=== PATIENT | male | born 1985 | race Caucasian/White ===

== ENCOUNTER 2019-07-18 15:37 | Emergency (ER) | payer OTHER ==
[2019-07-18] MEDS ORDERED: MORPHINE 4 MG/ML SYR ONE (16:06)
[2019-07-18] MEDS ORDERED: NA CHLORIDE 0.9% 500 ML ONE (16:06)
[2019-07-18 16:24] LABS: Absolute Lymphocytes (CBC) 4.9 K/uL (0.7-4.9); Basophils % 0.8 % (0-1.3); Hematocrit 40.6 % (39.6-49.0); Lymphocytes % 36.8 % (15.3-44.8); MPV 7.7 fL (7.6-11.3); RBC Red Blood Cell Count 4.73 M/uL (4.33-5.43)
[2019-07-18 16:37] LABS: ALT/SGPT 107 U/L (12-78); AST/SGOT 30 U/L (15-37); Albumin 3.8 g/dL (3.4-5.0); Alkaline Phosphatase 68 U/L (45-117); BUN Blood Urea Nitrogen 12 mg/dL (7-18); Bicarbonate 26 mmol/L (21-32); Bilirubin Direct < 0.1 mg/dL (0-0.2); Bilirubin Total 0.2 mg/dL (0.2-1.0); Glucose Level 93 mg/dL (74-106); Lipase 162 U/L (73-393); Potassium 3.9 mmol/L (3.5-5.1); Protein, Total 8.2 g/dL (6.4-8.2); Sodium Level 139 mmol/L (136-145)
--- NOTE | 2019-07-18 17:26 | RAD REPORT ---
EXAM DESCRIPTION: CT - Abdomen Pelvis W Contrast - 07/18/2019 5:08 pm CLINICAL HISTORY: Abdominal pain COMPARISON: none. TECHNIQUE: Computed axial tomography of the abdomen pelvis was obtained. 100 cc Isovue-300 was admin istered intravenously. Oral contrast was not requested which limits evaluation of bowel. All CT scans are performed using dose optimization technique as appropriate and may include automated exposure control or mA/KV adjustment according to patient size. FINDINGS: Fatty liver. The liver is mildly enlarged. The Spleen, pancreas, adrenal and kidneys appear unremarkable. The wall of the distal descending colon is moderately thickened. Mild to moderate stranding is presen t within the adjacent fat. A couple of diverticula stem from the sigmoid colon. There is a trace amou nt of free fluid. No free air. Normal appendix Small ventral and small supraumbilical hernia IMPRESSION: Wall of the distal descending colon is moderately thickened with mild to moderate strand ing within the adjacent fat. A diverticula is not visualized in this location. There are a couple of diverticula within the sigmoid colon. These findings presumably indicate a colitis with diverticulit is being somewhat less likely. .
--- NOTE | 2019-07-18 17:35 | ER ---
Nurse's Notes [facility] Name: Leonard Rea Age: 34 yrs Sex: Male : 1985 Arrival Date: 07/18/2019 Time: 15:39 Bed 30 Private MD: Jair Duron Diagnosis: Left sided colitis Presentation: 07/18 15:45 Presenting complaint: Patient states: sharp, LLQ pain that began 1 week ago. Denies ss fever, N/V/D. reports, we thought maybe it was a UTI so we started him on antibiotics. ". Transition of care: patient was not received from another setting of care. Onset of symptoms was June 2019. Risk Assessment: Do you want to hurt yourself or someone else? Patient reports no desire to harm self or others. Initial Sepsis Screen: Does the patient meet any 2 criteria? No. Patient's initial sepsis screen is negative. Does the patient have a suspected source of infection? No. Patient's initial sepsis screen is negative. Care prior to arrival: None. 15:45 Method Of Arrival: Ambulatory ss 15:45 Acuity: CHATA 3 ss Historical: - Allergies: 15:48 No Known Allergies; ss - Home Meds: 15:48 Albuterol Inhl [Active]; ss - PMHx: 15:48 Asthma; Bipolar disorder; Depression; ss - PSHx: 15:48 None; ss - Immunization history:: Adult Immunizations unknown. - Social history:: Smoking status: Patient/guardian denies using tobacco. - Ebola Screening: : Patient denies exposure to infectious person Patient denies travel to an Ebola-affected area in the 21 days before illness onset. Screenin:00 Abuse screen: Denies threats or abuse. Denies injuries from another. Nutritional ca1 screening: No deficits noted. Tuberculosis screening: No symptoms or risk factors identified. Fall Risk IV access (20 points). Assessment: 16:00 General: Appears in no apparent distress. comfortable, Behavior is calm, cooperative, ca1 appropriate for age. Pain: Complains of pain in left lower quadrant Pain does not radiate. Pain currently is 8 out of 10 on a pain scale. Quality of pain is described as sharp, Pain began a week ago but has gotten worse yesterday Is intermittent, Aggravated by repositioning. Neuro: Level of Consciousness is awake, alert, obeys commands, Oriented to person, place, time, situation, Appropriate for age. Cardiovascular: Heart tones S1 S2 present Capillary refill < 3 seconds Patient's skin is warm and dry. Respiratory: Airway is patent Respiratory effort is even, unlabored, Respiratory pattern is regular, symmetrical, Breath sounds are clear bilaterally. GI: Abdomen is round non-distended, Bowel sounds present X 4 quads. Abd is soft X 4 quads Abdomen is tender to palpation in left lower quadrant. : No deficits noted. No signs and/or symptoms were reported regarding the genitourinary system. EENT: No deficits noted. No signs and/or symptoms were reported regarding the EENT system. Derm: Skin is intact, is healthy with good turgor, Skin is pink, warm \\T\\ dry. Musculoskeletal: Circulation, motion, and sensation intact. Capillary refill < 3 seconds, Range of motion: intact in all extremities. 17:23 Reassessment: Patient appears in no apparent distress at this time. Patient and/or ca1 family updated on plan of care and expected duration. Pain level reassessed. Patient is alert, oriented x 3, equal unlabored respirations, skin warm/dry/pink. Vital Signs: 15:48 BP 130 / 82; Pulse 71; Resp 15; Temp 97.6(TE); Pulse Ox 98% on R/A; Weight 117.93 kg; ss Height 6 ft. 3 in. (190.50 cm); Pain 8/10; 16:35 BP 118 / 84; Pulse 75; Resp 17 S; Pulse Ox 97% on R/A; ca1 17:25 BP 120 / 86; Pulse 76; Resp 17 S; Pulse Ox 99% on R/A; ca1 15:48 Body Mass Index 32.50 (117.93 kg, 190.50 cm) ED Course: 15:39 Patient arrived in ED. rg4 15:39 Jair Duron MD is Private Physician. rg4 15:42 Mike Pat FNP-C is [facility]. la1 15:42 Fernie Crawford MD is Attending Physician. la1 15:47 Triage completed. ss 15:48 Arm band placed on right wrist. ss 16:00 No provider procedures requiring assistance completed. ca1 16:01 Colette Mike, YFN is Primary Nurse. ca1 16:08 Initial lab(s) drawn, by me, sent to lab. Inserted saline lock: 20 gauge in right jp3 antecubital area, using aseptic technique. Blood collected. Patient maintains SpO2 saturation greater than 95% on room air. 16:09 Safety checks: Family/friend present: yes. Bed in low position. Call light in reach. jp3 Side rails up X 1. Verbal reassurance given. Pulse ox on. NIBP on. 17:12 CT Abd/Pelvis - IV Contrast Only In Process Unspecified. EDMS 17:45 IV discontinued, intact, bleeding controlled, No redness/swelling at site. Pressure ca1 dressing applied. Administered Medications: 16:05 Drug: NS 0.9% 500 ml Route: IV; Rate: bolus; Site: right antecubital; ca1 17:00 Follow up: Response: No adverse reaction; IV Status: Completed infusion; IV Intake: ca1 500ml 16:07 Drug: morphine 4 mg {Note: RASS - 0.} Route: IVP; Site: right antecubital; ca1 17:37 Follow up: Response: No adverse reaction; Pain is decreased; RASS: Alert and Calm (0) ca1 17:44 Drug: Cipro 500 mg Route: PO; ca1 17:44 Follow up: Response: Medication administered at discharge. ca1 17:44 Drug: Flagyl 500 mg Route: PO; ca1 17:44 Follow up: Response: Medication administered at discharge. ca1 Intake: 17:00 IV: 500ml; Total: 500ml. ca1 Outcome: 17:34 Discharge ordered by . la1 17:45 Discharged to home ambulatory, with family. ca1 17:45 Condition: stable 17:45 Discharge instructions given to patient, Instructed on discharge instructions, follow up and referral plans. no drinking with medication, medication usage, Demonstrated understanding of instructions, follow-up care, medications, Prescriptions given X 3. 17:47 Patient left the ED. ca1 Signatures: Dispatcher [employer] EDMS Heidi Riddle, YFN RN Mike You, DESIGN MANAGER-C DESIGN MANAGER-Yeimy Cunningham Jacob jp3 Colette Mike RN RN ca1
--- NOTE | 2019-07-18 17:36 | EDPHYS ---
Physician Documentation [facility] Name: Leonard Rea Age: 34 yrs Sex: Male : 1985 Arrival Date: 07/18/2019 Time: 15:39 Bed 30 Private MD: Jair Duron ED Physician Fernie Crawford HPI: 07/18 16:17 This 34 yrs old Male presents to ER via Ambulatory with complaints of la1 Abdominal Pain. 16:17 The patient presents with abdominal pain that is diffuse. Onset: The symptoms/episode la1 began/occurred 1 week(s) ago. The symptoms do not radiate. Associated signs and symptoms: Pertinent negatives: chest pain, constipation, diarrhea, dysuria, fever, headache, hematuria. The symptoms are described as sharp. Modifying factors: The symptoms are alleviated by nothing, the symptoms are aggravated by alcohol. Severity of pain: At its worst the pain was moderate. Historical: - Allergies: 15:48 No Known Allergies; ss - Home Meds: 15:48 Albuterol Inhl [Active]; ss - PMHx: 15:48 Asthma; Bipolar disorder; Depression; ss - PSHx: 15:48 None; ss - Immunization history:: Adult Immunizations unknown. - Social history:: Smoking status: Patient/guardian denies using tobacco. - Ebola Screening: : Patient denies exposure to infectious person Patient denies travel to an Ebola-affected area in the 21 days before illness onset. ROS: 16:18 Constitutional: Negative for fever, chills, and weight loss, Eyes: Negative for injury, la1 pain, redness, and discharge, ENT: Negative for injury, pain, and discharge, Neck: Negative for injury, pain, and swelling, Cardiovascular: Negative for chest pain, palpitations, and edema, Respiratory: Negative for shortness of breath, cough, wheezing, and pleuritic chest pain, Back: Negative for injury and pain, : Negative for injury, bleeding, discharge, and swelling, MS/Extremity: Negative for injury and deformity, Skin: Negative for injury, rash, and discoloration, Neuro: Negative for headache, weakness, numbness, tingling, and seizure. 16:18 Abdomen/GI: Positive for abdominal pain. Exam: 16:19 Constitutional: This is a well developed, well nourished patient who is awake, alert, la1 and in no acute distress. Head/Face: Normocephalic, atraumatic. Eyes: Pupils equal round and reactive to light, extra-ocular motions intact. Periorbital areas with no swelling, redness, or edema. ENT: Mucous membranes moist. Neck: Trachea midline, no thyromegaly or masses palpated, and no cervical lymphadenopathy. Supple, full range of motion without nuchal rigidity, or vertebral point tenderness. No Meningismus. Chest/axilla: Normal chest wall appearance and motion. Nontender with no deformity. No lesions are appreciated. Cardiovascular: Regular rate and rhythm with a normal S1 and S2. No gallops, murmurs, or rubs. Normal PMI, no JVD. No pulse deficits. Respiratory: Lungs have equal breath sounds bilaterally, clear to auscultation No rales, rhonchi or wheezes noted. No increased work of breathing, no retractions or nasal flaring. 16:19 Abdomen/GI: Inspection: abdomen appears normal, obese Bowel sounds: normal, in all quadrants, Palpation: soft, in all quadrants, moderate abdominal tenderness, in the left lower quadrant, Indicators: McBurney's point is not tender, Akers's sign is negative, Rovsing's sign is negative, Obturator sign is negative, Psoas sign is negative. Vital Signs: 15:48 BP 130 / 82; Pulse 71; Resp 15; Temp 97.6(TE); Pulse Ox 98% on R/A; Weight 117.93 kg; ss Height 6 ft. 3 in. (190.50 cm); Pain 8/10; 16:35 BP 118 / 84; Pulse 75; Resp 17 S; Pulse Ox 97% on R/A; ca1 17:25 BP 120 / 86; Pulse 76; Resp 17 S; Pulse Ox 99% on R/A; ca1 15:48 Body Mass Index 32.50 (117.93 kg, 190.50 cm) ss MDM: 15:49 Patient medically screened. la1 17:33 Data reviewed: vital signs, nurses notes, and as a result, I will discharge patient. la1 Data interpreted: Pulse oximetry: on room air is 100 %. Interpretation: normal. Counseling: I had a detailed discussion with the patient and/or guardian regarding: the historical points, exam findings, and any diagnostic results supporting the discharge/admit diagnosis, the presence of at least one elevated blood pressure reading (>120/80) during this emergency department visit, radiology results, to return to the emergency department if symptoms worsen or persist or if there are any questions or concerns that arise at home. Special discussion: Based on the patient's Hx, exam, and Dx evaluation, there is no indication for emergent surgery or inpatient Tx. It is understood by the patient/guardian that if the Sx's persist or worsen they need to return immediately for re-evaluation. ED course: Pt tolerating PO, in no significant distress at this time. Will place on oral abx and have FU. strict return precautions given. 07/18 15:50 Order name: Basic Metabolic Panel; Complete Time: 17:32 07/18 15:50 Order name: CBC with Diff 07/18 15:50 Order name: Creatinine for Radiology; Complete Time: 17:32 07/18 15:50 Order name: Hepatic Function; Complete Time: 17:32 07/18 15:50 Order name: Lipase; Complete Time: 17:32 07/18 16:14 Order name: CT Abd/Pelvis - IV Contrast Only; Complete Time: 17:32 07/18 15:50 Order name: IV Saline Lock; Complete Time: 16:09 07/18 15:50 Order name: Labs collected and sent; Complete Time: 16: Administered Medications: 16:05 Drug: NS 0.9% 500 ml Route: IV; Rate: bolus; Site: right antecubital; ca1 17:00 Follow up: Response: No adverse reaction; IV Status: Completed infusion; IV Intake: ca1 500ml 16:07 Drug: morphine 4 mg {Note: RASS - 0.} Route: IVP; Site: right antecubital; ca1 17:37 Follow up: Response: No adverse reaction; Pain is decreased; RASS: Alert and Calm (0) ca1 17:44 Drug: Cipro 500 mg Route: PO; ca1 17:44 Follow up: Response: Medication administered at discharge. ca1 17:44 Drug: Flagyl 500 mg Route: PO; ca1 17:44 Follow up: Response: Medication administered at discharge. ca1 Disposition: 07/18/19 17:34 Discharged to Home. Impression: Left sided colitis. - Condition is Stable. - Discharge Instructions: Diverticulitis, Colitis. - Prescriptions for Bentyl 20 mg Oral Tablet - take 1 tablet by ORAL route every 6 hours As needed; 20 tablet. Cipro 500 mg Oral Tablet - take 1 tablet by ORAL route every 12 hours for 7 days; 14 tablet. Flagyl 500 mg Oral Tablet - take 1 tablet by ORAL route every 8 hours for 7 days; 21 tablet. - Medication Reconciliation Form, Thank You Letter, Antibiotic Education, Work release form form. - Follow up: Private Physician; When: 2 - 3 days; Reason: Recheck today's complaints, Re-evaluation by your physician. Follow up: Emergency Department; When: As needed; Reason: Worsening of condition. - Problem is new. - Symptoms have improved. Addendum: 07/21/2019 06:40 Co-signature as Attending Physician, Fernie Crawford MD I agree with the assessment and k dr plan of care. Signatures: Dispatcher [employer] EDKY Fernie Crawford MD MD kdr Heidi Riddle RN RN Mike Pat, SEWING LINE BALER-C SEWING LINE BALER-Cla1 Colette Mike RN RN ca1 Corrections: (The following items were deleted from the chart) 07/18 15:55 15:50 Urine Dipstick-Ancillary ordered. la1 la1 17:47 17:34 07/18/2019 17:34 Discharged to Home. Impression: Left sided colitis. Condition is ca1 Stable. Forms are Medication Reconciliation Form, Thank You Letter, Antibiotic Education, Prescription Opioid Use. Follow up: Private Physician; When: 2 - 3 days; Reason: Recheck today's complaints, Re-evaluation by your physician. Follow up: Emergency Department; When: As needed; Reason: Worsening of condition. Problem is new. Symptoms have improved. la1
[2019-07-18] MEDS ORDERED: metroNIDAZOLE 500 MG TABLET ONE (17:42)
[2019-07-18] MEDS ORDERED: CIPROFLOXACIN HCL 500 MG TAB ONE (17:42)
[2019-07-18 18:37] VITALS: TEMP 97.6
[2019-07-18 18:40] VITALS: BP 120/86; O2SAT 99
== END 2019-07-18 17:47 | disposition home or self-care (01) ==
LOC: ER 15:37
DX: K51.50 Left sided colitis without complications (principal); J45.909 Unspecified asthma, uncomplicated
CPT/HCPCS: 96361; 85025; 80048; 36415; 80076; 83690; 74177; 96374; 99284; Q9967; J7040

== ENCOUNTER 2020-12-28 20:06 | Emergency (ER) | payer OTHER, SELFPAY ==
--- OUTSIDE RECORDS SUMMARY | 2020-12-28 20:10 | XMS REPORT | Continuity of Care Document ---
:1985 Author Organization [facility] t Address [address] [place] [address] Care Team Providers Name Role Phone 1, [facility] Sleep Lab Bed Attending Clinician Unavailable Doctor Unassigned, Name Attending Clinician Unavailable Only, Test Attending Clinician Unavailable Problems Condition Condition Condition Status Onset Resolution Last Treating Co mments Source Name Details Category Date Date Treatment Clinician Date Encounter Encounter Diagnosis Active [facility] fertility Sundeep reji planning planning l [facility] Allergies, Adverse Reactions, Alerts This patient has no known allergies or adverse reactions. Medications Ordered Filled Start Stop Current Ordering Indication Dosage Frequency Signature Comments Components Source Medication Medication Date Date Medication? Clinician (SIG) Name Name Escitalopra Escitalopra Yes Codie [address] [facility] Oxalate [facility]alate [facility] Noe Basic Noe Basic Yes Codie not [facility] Nexium Nexium Yes Codie [facility] capsule [facility] Divalproex Divalproex Yes Codie [address] [facility] [address] Sodium Sodium Citrus [facility] Calm Plus Calm Plus Yes Codie as [facility] Fish Oil Fish Oil Yes Codie [address] [facility] Xyzal Xyzal Yes Codie not [facility] Procedures This patient has no known procedures. Encounters Start End Encounter Admission Attending Care Care Encounter Source Date/Time Date/Time Type Type Clinicians Facility Department ID 2020-03-02 2020-03-02 Campus Supervisor 1, [facility] [id number] 13:30:04 16:00:04 Visit Sleep Lab [place] [id number] Bed [place] [id number] [place] [id number] 2020-03-02 2020-03-02 Orders Doctor JHONATAN [id number] 00:00:00 00:00:00 Only Unassigned, L[facility]SS[facility] [id number] [facility] [id number] 2020-02-27 2020-02-27 Laboratory Only, [facility] [id number] 10:53:49 11:08:49 Only Test [place] [id number] [place] [id number] [place] [id number] 2020-02-12 2020-02-12 Campus Supervisor 1, [facility] [id number] 14:19:31 16:49:31 Visit Sleep Lab [place] [id number] Bed [place] [id number] [place] [id number] 2020-02-10 2020-02-10 Laboratory Only, [facility] [id number] 11:27:44 11:42:44 Only Test [place] [id number] [place] [id number] [place] [id number] 2020-02-10 2020-02-10 Orders Doctor JHONATAN [id number] 00:00:00 00:00:00 Only Unassigned, LYSSA [id number] [facility] [id number] 2019-08-12 2019-08-12 [facility] [id number] 16:00:00 16:00:00 t Specialty/U Julianne kes - Specialty rology [facility] a /Urology Clinic l Clinic Outpati ent Clinics Results This patient has no known results.
[2020-12-28] MEDS ORDERED: MAGNES/ALUMIN/SIMET 30ML UCUP ONE (20:57)
[2020-12-28] MEDS ORDERED: LIDOCAINE VISCOUS 2% SOLN 15 ML UDC ONE (20:57)
[2020-12-28 21:10] LABS: Absolute Lymphocytes (CBC) 4.1 K/uL (0.7-4.9); Basophils % 0.8 % (0-1.3); Hematocrit 41.2 % (39.6-49.0); Lymphocytes % 33.1 % (15.3-44.8); MPV 9.8 fL (7.6-11.3); RBC Red Blood Cell Count 5.09 M/uL (4.33-5.43)
[2020-12-28 21:27] LABS: ALT/SGPT 41 U/L (12-78); AST/SGOT 14 U/L (15-37); Albumin 4.2 g/dL (3.4-5.0); Alkaline Phosphatase 85 U/L (45-117); BUN Blood Urea Nitrogen 11 mg/dL (7-18); Bicarbonate 25 mmol/L (21-32); Bilirubin Direct < 0.1 mg/dL (0-0.2); Bilirubin Total 0.5 mg/dL (0.2-1.0); Glucose Level 91 mg/dL (74-106); Lipase 160 U/L (73-393); Potassium 3.6 mmol/L (3.5-5.1); Protein, Total 8.5 g/dL (6.4-8.2); Sodium Level 142 mmol/L (136-145)
--- NOTE | 2020-12-28 23:01 | EDPHYS ---
Physician Documentation [facility] Name: Leonard Rea Age: 35 yrs Sex: Male : 1985 Arrival Date: 12/28/2020 Time: 20:10 Bed 15 Private MD: ED Physician Tony Redmond HPI: 12/28 20:52 This 35 yrs old Male presents to ER via Ambulatory with complaints of rn Abdominal Pain. 20:52 The patient presents with abdominal pain right side/flank. Onset: The symptoms/episode rn began/occurred 2 year(s) ago. The symptoms do not radiate. Associated signs and symptoms: Pertinent positives: diarrhea, heartburn, Pertinent negatives: chest pain, constipation, fever. The symptoms are described as achy, crampy, sharp. Modifying factors: The symptoms are alleviated by nothing, the symptoms are aggravated by food, movement, touching the area. Severity of pain: At its worst the pain was moderate in the emergency department the pain has improved. The patient has experienced similar episodes in the past. The patient has not recently seen a physician. Reports 2 years of intermittent right sided abd pain assoc with intermittent diarrhea, heartburn. Last for a week or so at a time, no hx of abd diagnoses, no trauma. Going through a lot of stress lately. Nothing really changed recently, not any worse, just decided to come in because has been happening for so long.. Historical: - Allergies: 20:18 No Known Allergies; vg1 - Home Meds: 20:18 Depakote Oral [Active]; Lexapro Oral [Active]; [place] Carbonate Oral [Active]; vg1 - PMHx: 20:18 Asthma; Bipolar disorder; Depression; Anxiety; vg1 - Immunization history:: Adult Immunizations up to date. - Social history:: Smoking status: Patient denies any tobacco usage or history of. Patient uses marijuana. - Family history:: not pertinent. - Hospitalizations: : No recent hospitalization is reported. ROS: 20:52 Constitutional: Negative for fever, chills, and weight loss, Eyes: Negative for injury, rn pain, redness, and discharge, Neck: Negative for injury, pain, and swelling, Cardiovascular: Negative for chest pain, palpitations, and edema, Respiratory: Negative for shortness of breath, cough, wheezing, and pleuritic chest pain, Abdomen/GI: Negative for nausea, vomiting and constipation, Back: Negative for injury and pain, : Negative for injury, bleeding, discharge, and swelling, MS/Extremity: Negative for injury and deformity, Skin: Negative for injury, rash, and discoloration, Neuro: Negative for headache, weakness, numbness, tingling, and seizure. Exam: 20:52 Constitutional: This is a well developed, well nourished patient who is awake, alert, rn and in no acute distress. Head/Face: Normocephalic, atraumatic. Eyes: Periorbital areas with no swelling, redness, or edema. Cardiovascular: Regular rate and rhythm. No pulse deficits. Respiratory: No increased work of breathing, no retractions or nasal flaring. Abdomen/GI: soft, mild right sided abd tenderness, no rebound, no masses, neg elam Skin: Warm, dry MS/ Extremity: Pulses equal, no cyanosis. Neuro: Awake and alert, GCS 15 Vital Signs: 20:11 BP 135 / 102; Pulse 62; Resp 16; Temp 97.8; Pulse Ox 99% ; Weight 113.4 kg; Height 6 vg1 ft. 3 in. (190.50 cm); Pain 9/10; 23:25 BP 122 / 78; Pulse 61; Resp 16; Pulse Ox 99% on R/A; jm8 20:11 Body Mass Index 31.25 (113.40 kg, 190.50 cm) vg1 MDM: 20:21 Patient medically screened. rn 22:59 Differential diagnosis: appendicitis, diverticulitis, gastritis, gastroesophageal rn reflux disease, Ureterolithiasis. Data reviewed: vital signs, nurses notes, lab test result(s), radiologic studies, CT scan, and as a result, I will discharge patient. Counseling: I had a detailed discussion with the patient and/or guardian regarding: the historical points, exam findings, and any diagnostic results supporting the discharge/admit diagnosis, lab results, radiology results, the need for outpatient follow up, to return to the emergency department if symptoms worsen or persist or if there are any questions or concerns that arise at home. Response to treatment: the patient's symptoms have mildly improved after treatment, and as a result, I will discharge patient. Special discussion: Based on the patient's Hx, exam, and Dx evaluation, there is no indication for emergent surgery or inpatient Tx. It is understood by the patient/guardian that if the Sx's persist or worsen they need to return immediately for re-evaluation. I discussed with the patient/guardian in detail that at this point there is no indication for admission to the hospital. It is understood, however, that if the symptoms persist or worsen the patient needs to return immediately for re-evaluation. Based on the history and exam findings, there is no indication for further emergent testing or inpatient evaluation. I discussed with the patient/guardian the need to see the fast food shift supervisor for further evaluation of the symptoms. 12/28 20:34 Order name: Basic Metabolic Panel; Complete Time: 21:28 rn 12/28 20:34 Order name: CBC with Diff; Complete Time: 21: rn 12/28 20:34 Order name: Hepatic Function; Complete Time: :28 rn 12/28 20:34 Order name: Lipase; Complete Time: 21:28 12/28 20:34 Order name: CT Abd/Pelvis - IV Contrast Only 12/28 20:34 Order name: IV Saline Lock; Complete Time: 20:48 rn 12/28 20:34 Order name: Labs collected and sent; Complete Time: 20:48 rn Administered Medications: 20:48 Drug: GI Cocktail without - (Maalox Suspension 30 ml, Lidocaine Liquid 2 % 15 jm8 ml) Route: PO; 23:22 Follow up: Response: No adverse reaction [facility] 23:21 Drug: Cipro (ciprofloxacin) 500 mg Route: PO; [facility] 23:22 Follow up: Response: No adverse reaction; Medication administered at discharge. [facility] 23:22 Drug: Flagyl (metroNIDAZOLE) 500 mg Route: PO; 8 23:22 Follow up: Response: No adverse reaction [facility] Disposition: 12/28/20 23:00 Discharged to Home. Impression: Diverticulitis of large intestine without perforation or abscess without bleeding, Fatty (change of) liver, not elsewhere classified. - Condition is Stable. - Discharge Instructions: Diverticulitis, Nonalcoholic Fatty Liver Disease Diet. - Prescriptions for Flagyl 500 mg Oral Tablet - take 1 tablet by ORAL route every 8 hours for 10 days; 30 tablet. Cipro 500 mg Oral Tablet - take 1 tablet by ORAL route every 12 hours for 10 days; 20 tablet. - Medication Reconciliation Form, Thank You Letter, Antibiotic Education, Prescription Opioid Use form. - Follow up: Jarrell Crawford MD; When: As needed; Reason: Recheck today's complaints, Re-evaluation by your physician. - Problem is an ongoing problem. - Symptoms have improved. Signatures: Dispatcher [employer] EDTony Peña MD MD rn Lizandro, Sandhya, RN RN vg1 Beny Christensen, RN RN jm8 Corrections: (The following items were deleted from the chart) 20:55 20:52 Reports 2 years of intermittent right sided abd pain assoc with intermittent rn diarrhea, heartburn. Last for a week or so at a time, no hx of abd diagnoses, no trauma. Going through a lot of stress lately. . rn 23:24 23:00 12/28/2020 23:00 Discharged to Home. Impression: Diverticulitis of large jm8 intestine without perforation or abscess without bleeding; Fatty (change of) liver, not elsewhere classified. Condition is Stable. Forms are Medication Reconciliation Form, Thank You Letter, Antibiotic Education, Prescription Opioid Use. Follow up: Jarrell Crawford; When: As needed; Reason: Recheck today's complaints, Re-evaluation by your physician. Problem is an ongoing problem. Symptoms have improved. rn
--- NOTE | 2020-12-28 23:01 | ER ---
Nurse's Notes [facility] Name: Leonard Rea Age: 35 yrs Sex: Male : 1985 Arrival Date: 12/28/2020 Time: 20:10 Bed 15 Private MD: Diagnosis: Diverticulitis of large intestine without perforation or abscess without bleeding;Fatty (change of) liver, not elsewhere classified Presentation: 12/28 20:11 Chief complaint: Patient states: Intermittent ABD pain that been going on for about 2 vg1 years. Pt states RLQ pain that radiates up the the RUQ. Stated 'I have not gone to see anyone about this problem.'. Coronavirus screen: Client denies travel out of the [place] in the last 14 days. Ebola Screen: Patient negative for fever greater than or equal to 101.5 degrees Fahrenheit, and additional compatible Ebola Virus Disease symptoms. Initial Sepsis Screen: Does the patient meet any 2 criteria? No. Patient's initial sepsis screen is negative. Does the patient have a suspected source of infection? No. Patient's initial sepsis screen is negative. Risk Assessment: Do you want to hurt yourself or someone else? Patient reports no desire to harm self or others. Onset of symptoms was July 16, 2018. 20:11 Method Of Arrival: Ambulatory vg1 20:11 Acuity: CHATA 3 vg1 Triage Assessment: 20:18 General: Appears in no apparent distress. uncomfortable, Behavior is calm, cooperative. vg1 Pain: Complains of pain in anterior aspect of left lateral abdomen and posterior aspect of left lateral abdomen. GI: Abdomen is round. Historical: - Allergies: 20:18 No Known Allergies; vg1 - Home Meds: 20:18 Depakote Oral [Active]; Lexapro Oral [Active]; [place] Carbonate Oral [Active]; vg1 - PMHx: 20:18 Asthma; Bipolar disorder; Depression; Anxiety; vg1 - Immunization history:: Adult Immunizations up to date. - Social history:: Smoking status: Patient denies any tobacco usage or history of. Patient uses marijuana. - Family history:: not pertinent. - Hospitalizations: : No recent hospitalization is reported. Screenin:56 Abuse screen: Denies threats or abuse. Denies injuries from another. Nutritional jm8 screening: No deficits noted. Tuberculosis screening: No symptoms or risk factors identified. Fall Risk None identified. Assessment: 20:54 General: Appears in no apparent distress. comfortable, Behavior is calm, cooperative, jm8 appropriate for age. Pain: Complains of pain in abdomen Pain currently is 10 out of 10 on a pain scale. Quality of pain is described as sharp, stabbing. Neuro: No deficits noted. Cardiovascular: No deficits noted. Respiratory: No deficits noted. Airway is patent Trachea midline Respiratory effort is even, unlabored, Respiratory pattern is regular, symmetrical. GI: Bowel sounds present X 4 quads. Abd is soft Abdomen is tender to palpation X 4 quads. Reports lower abdominal pain, upper abdominal pain. : No deficits noted. No signs and/or symptoms were reported regarding the genitourinary system. EENT: No deficits noted. No signs and/or symptoms were reported regarding the EENT system. Derm: No deficits noted. No signs and/or symptoms reported regarding the dermatologic system. Musculoskeletal: No deficits noted. No signs and/or symptoms reported regarding the musculoskeletal system. Vital Signs: 20:11 BP 135 / 102; Pulse 62; Resp 16; Temp 97.8; Pulse Ox 99% ; Weight 113.4 kg; Height 6 vg1 ft. 3 in. (190.50 cm); Pain 9/10; 23:25 BP 122 / 78; Pulse 61; Resp 16; Pulse Ox 99% on R/A; jm8 20:11 Body Mass Index 31.25 (113.40 kg, 190.50 cm) vg1 ED Course: 20:10 Patient arrived in ED. vg1 20:17 Triage completed. vg1 20:18 Arm band placed on. vg1 20:20 Inserted saline lock: 20 gauge in right antecubital area, using aseptic technique. jm8 20:21 Tony Redmond MD is Attending Physician. rn 20:56 Patient has correct armband on for positive identification. Bed in low position. Call jm8 light in reach. Side rails up X2. 22:36 CT Abd/Pelvis - IV Contrast Only In Process Unspecified. EDMS 23:00 Jarrell Crwaford MD is Referral Physician. rn 23:23 No provider procedures requiring assistance completed. IV discontinued, intact. jm8 Administered Medications: 20:48 Drug: GI Cocktail without - (Maalox Suspension 30 ml, Lidocaine Liquid 2 % 15 jm8 ml) Route: PO; 23:22 Follow up: Response: No adverse reaction jm8 23:21 Drug: Cipro (ciprofloxacin) 500 mg Route: PO; jm8 23:22 Follow up: Response: No adverse reaction; Medication administered at discharge. jm8 23:22 Drug: Flagyl (metroNIDAZOLE) 500 mg Route: PO; jm8 23:22 Follow up: Response: No adverse reaction jm8 Outcome: 23:00 Discharge ordered by . rn 23:23 Discharged to home ambulatory. 8 23:23 Condition: good 23:23 Discharge instructions given to patient, Instructed on discharge instructions, follow up and referral plans. medication usage, Demonstrated understanding of instructions, follow-up care, medications. 23:24 Patient left the ED. jm8 Signatures: Dispatcher [employer] EDTony Peña MD MD rn Garcia, Victoria RN RN vg1 Beny Christensen RN RN jm8
[2020-12-28 23:34] VITALS: TEMP 97.8; O2SAT 99
[2020-12-28] MEDS ORDERED: metroNIDAZOLE 500 MG TABLET ONE (23:35)
[2020-12-28] MEDS ORDERED: CIPROFLOXACIN HCL 500 MG TAB ONE (23:35)
[2020-12-28 23:36] VITALS: BP 122/78
--- NOTE | 2020-12-29 13:03 | RAD REPORT ---
EXAM DESCRIPTION: CT - Abdomen Pelvis W Contrast - 12/29/2020 1:04 am CLINICAL HISTORY: Right sided abd pain/flank pain;Abd pain. COMPARISON: CT of the abdomen and pelvis from July 18, 2019. TECHNIQUE: CT of the abdomen and pelvis was performed following intravenous administration of iodina dane contrast. Arterial phase images through the abdomen, and portal venous phase images through the a bdomen and pelvis were obtained. Oral contrast was not administered. Axial, coronal, and sagittal sof t tissue window reconstructions were created and sent to PACS. This exam was performed according to our departmental dose-optimization program, which includes autom ated exposure control, adjustment of the mA and/or kV according to patient size and/or use of iterati ve reconstruction technique. FINDINGS: Thoracic: No significant abnormality. Hepatobiliary: Diffuse hepatic steatosis. Hepatomegaly, measuring 23.6 cm in length. No concerning he patic lesion identified. The hepatic and portal veins are patent. The gallbladder is unremarkable. No biliary ductal dilatation. Pancreas: Unremarkable. Spleen: Unremarkable. Gastrointestinal: No evidence of bowel obstruction. The appendix is normal. Mild left colonic diverti culosis. In the mid sigmoid colon and in the mid pelvis, there is mild wall thickening and fat strand ing. No fluid collection or free air identified. Adrenals: No abnormality identified in either adrenal gland. Renal: No concerning parenchymal abnormality in either kidney. No hydronephrosis or urolithiasis. Bladder/Reproductive: Unremarkable appearance of the urinary bladder by CT technique. Vascular/Lymphatics: No lymphadenopathy identified by CT size criteria. Abdominal aorta is normal in caliber. Major visceral vessels are patent. Musculoskeletal: No concerning osseous lesion identified. Transitional lumbosacral vertebral body. 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 Fluid / peritoneum: No significant free fluid. No free intraperitoneal air identified. IMPRESSION 1. Mild acute sigmoid diverticulitis in the midline pelvis. No fluid collection or free air identified. 2. Diffuse hepatic steatosis and hepatomegaly. 3. Partial ankylosis at the sacroiliac joints. Correlate for ankylosing spondylitis. Electronically signed by: Shannon Stein MD 12/28/2020 10:38 PM CDT Due to temporary technical issues with the PACS/Fluency reporting system, reports are being signed by the in house radiologists without review as a courtesy to insure prompt reporting. The interpreting radiologist is fully responsible for the content of the report.
== END 2020-12-28 23:24 | disposition home or self-care (01) ==
LOC: ER 20:06
DX: K57.32 Diverticulitis of large intestine without perforation or abscess without bleeding (principal); K76.0 Fatty (change of) liver, not elsewhere classified
CPT/HCPCS: 36415; 74177; 80048; 80076; 83690; 85025; Q9967

== ENCOUNTER 2021-10-11 12:31 | Emergency (ER) | payer SELFPAY ==
--- OUTSIDE RECORDS SUMMARY | 2021-10-11 12:33 | XMS REPORT | Continuity of Care Document ---
:1985 Author Organization [facility] t Address [address] [place] [address] Care Team Providers Name Role Phone Fernando CHOWDHURY Attending Clinician Unavailable Fernando CHOWDHURY Attending Clinician Unavailable 1, Sleep Lab Bed Attending Clinician Unavailable Fernando Chowdhury MD Attending Clinician Doctor Unassigned, Name Attending Clinician Unavailable Only, Test Attending Clinician Unavailable Harpreet MCCLOUD Attending Clinician Payers Payer Name Policy Type Policy Number Effective Date Expiration Date [facility] [id number] 2019 CHOICE 00:00:00 Problems Condition Condition Condition Status Onset Resolution Last Treating Co mments Source Name Details Category Date Date Treatment Clinician Date Encounter Encounter Diagnosis Active [facility]deep reji planning [facility] Allergies, Adverse Reactions, Alerts Allergy Allergy Status Severity Reaction(s) Onset Inactive Treating Comm ents Source Name Type Date Date Clinician NO KNOWN Drug Active Univers ALLERGIE Class ity of S [facility] Social History Social Habit Start Date Stop Date Quantity Comments Source Sex Assigned At Uni versity [facility] Exposure to SARS-CoV-2 Not sure Un [facility] (event) [facility] Smoking Status Start Date Stop Date Source Unknown if ever smoked [facility] Medications Ordered Filled Start Stop Current Ordering Indication Dosage Frequency Signature Comments Components Source Medication Medication Date Date Medication? Clinician (SIG) Name Name Xyzal Xyzal Yes Codie not [facility] Escitalopra Escitalopra Yes Codie [address] Oxalate m Oxalate [place] [facility]ics Noe Basic Noe Basic Yes Codie not [facility] [place] [facility] Nexium Nexium Yes Codie 1 capsule [facility] [place] [facility] Divalproex Divalproex Yes Codie [address] Sodium Sodium [facility] Calm Plus Calm Plus Yes Codie as [facility] [place] [facility] Fish Oil Fish Oil Yes Codie [address] [facility] Procedures Procedure Date / Time Performed Performing Clinician [facility] e SLEEP STUDY DATA 2020-03-02 05:01:00 Doctor Unassigned, No [facility] REPORT Name Medical Branch ASSIGNMENT OF BENEFITS 2020-02-10 16:28:21 Doctor Unassigned, No [facility] Name Medical Branch Encounters Start End Encounter Admission Attending Care Care Encounter Source Date/Time Date/Time Type Type Clinicians Facility Department ID 2021-08-10 Outpatient STLMLC STLMLC [id number] [facility] [address] 11:03:53 [id number] [facility] 2020-03-02 2020-03-02 Outpatient R [facility] [id number] Univers 20:00[facility]00 [facility]00[id number] 2020-03-02 2020-03-02 Outpatient R MELLY CHOWDHURY [facility] [id number] Univers 20:00:00 20:00:00 [facility] 2020-03-02 2020-03-02 Materials Engineer 1, [facility] 1.2.840.114 [id number] 13:30:04 16:00:04 Visit Sleep Lab [place] [id number] [facility] [id number] [place] [address] [id number] [facility] 2020-03-02 2020-03-02 Materials Engineer 1, [facility] Sleep Lab Bed [facility] 1. 2.840.114 [id number] Univers 13:30:04 16:00:04 Visit Melly Chowdhury [place] [id number]. 10 [facility] 4.[facility] [place] [address] [phone] [place] [address] [place] 2020-03-02 2020-03-02 Orders Doctor JHONATAN 1.2.840.114 [id number] 00:00:00 00:00:00 Only Unassigned, LYSSA [id number] [facility] 4.2.7.2.686 [id number] 009 2020-03-02 2020-03-02 Orders Doctor JHONATAN 1.2.840.114 [id number] Univers 00:00:00 00:00:00 Only Unassigned, LYSSA [id number] [facility] 4.2.7.2.686 [place] [id number] [address] 2020-02-27 2020-02-27 Laboratory Only, [facility] 1.2.840.114 [id number] 10:53:49 11:08:49 Only Test [place] [id number] [place] 4.2.7.2.686 [place] [id number] 2020-02-27 2020-02-27 Laboratory Only, [facility] Test [facility] 1.2.840. 114 [id number] [facility] 10:53:49 11:08:49 Only Mullins, Rudi [place] [id number] ity of [place] 4.2.7.2.686 [facility] [phone] [facility] [address] 2020-02-27 2020-02-27 Outpatient R [facility] [id number] Univers 11:00:00 11:00:00 [id number] ity [facility] 2020-02-27 2020-02-27 Outpatient R [facility] [id number] Univers 11:00:00 11:00:00 ity [facility] 2020-02-12 2020-02-12 Outpatient R MELLY CHOWDHURY [facility] [id number] Univers 20:00:00 20:00:00 [facility] 2020-02-12 2020-02-12 Materials Engineer 1, [facility] 1.2.840.114 [id number] 14:19:31 16:49:31 Visit Sleep Lab [place] [id number] Bed [place] 4.2.7.2.686 [place] [id number] 2020-02-12 2020-02-12 Materials Engineer 1, [facility] Sleep Lab Bed [facility] 1. 2.840.114 [id number] Univers 14:19:31 16:49:31 Visit Melly Chowdhury 350.1.13. 10 ity of [place] 4.2.7.2.686 [facility] [id number] [facility] [address] 2020-02-10 2020-02-10 Laboratory Only, [facility] 1.2.840.114 [id number] 11:27:44 11:42:44 Only Test [place] [id number] [place] 4.2.7.2.686 [place] [id number] 2020-02-10 2020-02-10 Laboratory Only, [facility] Test [facility] 1.2.840. 114 [id number] Univers 11:27:44 11:42:44 Only Melly Chowdhury 350.1.13. 10 ity of [place] 4.2.7.2.686 [facility] [id number] [facility] [address] 2020-02-10 2020-02-10 Outpatient R MELLY CHOWDHURY [facility] [id number] Univers 11:15:00 11:15:00 MELLY CHOWDHURY ity [facility] 2020-02-10 2020-02-10 Orders Doctor JHONATAN 1.2.840.114 [id number] 00:00:00 00:00:00 Only Unassigned, LYSSA [id number] [facility] [id number] [id number] [id number] 2020-02-10 2020-02-10 Orders Doctor JHONATAN 1.2.840.114 [id number] Univers 00:00:00 00:00:00 Only Unassigned, LYSSA [id number] ity of [place] [facility] [id number] [facility] [phone] [facility] [address] [place] 2019-08-12 2019-08-12 [facility] [id number] 16:00:00 16:00:00 t Specialty/U Julianne kes - Specialty rology [facility] a /Urology Clinic l Clinic Outpati ent Clinics Results This patient has no known results.
[2021-10-11] MEDS ORDERED: ONDANSETRON 4 MG/2 ML VIAL ONE (13:05)
[2021-10-11] MEDS ORDERED: NA CHLORIDE 0.9% 1,000 ML ONE (13:05)
[2021-10-11] MEDS ORDERED: FAMOTIDINE 20 MG/2 ML VIAL IV ONE (13:05)
[2021-10-11 13:06] LABS: Absolute Lymphocytes (CBC) 3.4 K/uL (0.7-4.9); Hematocrit 43.2 % (39.6-49.0); Lymphocytes % 17.4 % (15.3-44.8); MPV 8.5 fL (7.6-11.3); RBC Red Blood Cell Count 5.25 M/uL (4.33-5.43)
[2021-10-11 13:11] LABS: Urine Blood Negative (Negative); Urine Glucose Negative (Negative); Urine Protein Negative (Negative); Urine Specific Gravity >=1.030 (1.005-1.030)
[2021-10-11 13:28] LABS: Albumin 4.2 g/dL (3.4-5.0); Bilirubin Total 0.6 mg/dL (0.2-1.0); Potassium 3.9 mmol/L (3.5-5.1); Protein, Total 8.6 g/dL (6.4-8.2)
[2021-10-11 13:39] LABS: Urine Bacteria <20 /HPF (NONE SEEN); Urine Mucus SLIGHT /HPF (NONE SEEN); Urine RBC NONE SEEN /HPF (NONE SEEN)
--- NOTE | 2021-10-11 13:49 | RAD REPORT ---
EXAM DESCRIPTION: CTAbdomen Pelvis W Contrast - 10/11/2021 1:24 pm CLINICAL HISTORY: Abdominal pain. ABD PAIN COMPARISON: Abdomen Pelvis W Contrast dated 12/28/2020; Abdomen Pelvis W Contrast dated 07/18/2019 TECHNIQUE: Biphasic CT imaging of the abdomen and pelvis was performed with 100 ml non-ionic IV cont rast. All CT scans are performed using dose optimization technique as appropriate and may include automated exposure control or mA/KV adjustment according to patient size. FINDINGS: The lung bases are clear. Mild diffuse fatty liver. The spleen, pancreas, adrenal glands and kidneys are within normal limits. No bowel obstruction, free air, free fluid or abscess. Small fat containing umbilical hernia. The tami endix is normal. Moderate inflammation is seen surrounding 8-9 cm segment of the sigmoid colon in the left lower quadrant. No evidence of significant lymphadenopathy. Significant sclerosis adjacent to the right greater the left SI joint. IMPRESSION: Moderate acute left lower quadrant sigmoid diverticulitis is present. No abscess is evid ent. After appropriate therapy, followup colonoscopy would be recommended.
--- NOTE | 2021-10-11 14:08 | ER ---
Nurse's Notes [facility] Name: Leonard Rea Age: 36 yrs Sex: Male : 1985 Arrival Date: 10/11/2021 Time: 12:32 Bed 25 Private MD: Diagnosis: Diverticulitis of large intestine without perforation or abscess without bleeding;Lower abdominal pain, unspecified;Leukocytosis Presentation: 10/11 12:36 Chief complaint: Patient states: R SIDED ABDOMINAL PAIN, SAME PREVIOUS bp DIVERTICULITIS FLARES. Coronavirus screen: At this time, the client does not indicate any symptoms associated with coronavirus-19. Ebola Screen: No symptoms or risks identified at this time. Initial Sepsis Screen: Does the patient meet any 2 criteria? No. Patient's initial sepsis screen is negative. Does the patient have a suspected source of infection? No. Patient's initial sepsis screen is negative. Risk Assessment: Do you want to hurt yourself or someone else? Patient reports no desire to harm self or others. Onset of symptoms is unknown. 12:36 Method Of Arrival: Ambulatory bp 12:36 Acuity: CHATA 3 bp 12:38 Note LAST SEEN FOR DIVERTICULITIS \R\OCTOBER 2020. bp Triage Assessment: 12:38 General: Appears in no apparent distress. uncomfortable, Behavior is calm, cooperative, bp appropriate for age. Pain: Complains of pain in right upper quadrant and right lower quadrant. EENT: No deficits noted. Neuro: No deficits noted. Cardiovascular: No deficits noted. Respiratory: No deficits noted. GI: Reports upper abdominal pain, nausea, vomiting. : No signs and/or symptoms were reported regarding the genitourinary system. Derm: No deficits noted. Musculoskeletal: No deficits noted. Historical: - Allergies: 12:37 No Known Allergies; bp - Home Meds: 12:37 None [Active]; bp - PMHx: 12:37 Anxiety; Asthma; Bipolar disorder; Depression; bp - Immunization history:: Client reports having NOT received the Covid vaccine. - Social history:: Smoking status: Patient denies any tobacco usage or history of. Screenin:11 Abuse screen: Denies threats or abuse. Denies injuries from another. Nutritional ld1 screening: No deficits noted. Tuberculosis screening: No symptoms or risk factors identified. Fall Risk None identified. Assessment: 13:11 General: Appears in no apparent distress. comfortable, Behavior is calm, cooperative, ld1 appropriate for age. Pain: Complains of pain in suprapubic area and right lower quadrant Pain does not radiate. Pain currently is 8 out of 10 on a pain scale. Quality of pain is described as shooting, stabbing, throbbing, Pain began gradually, Is continuous. Neuro: Level of Consciousness is awake, alert, obeys commands, Oriented to person, place, time, situation, Appropriate for age. Cardiovascular: Capillary refill < 3 seconds Patient's skin is warm and dry. Rhythm is regular. Respiratory: Airway is patent Respiratory effort is even, unlabored. GI: Abdomen is flat, non-distended, Reports lower abdominal pain, nausea, vomiting. : No signs and/or symptoms were reported regarding the genitourinary system. EENT: No signs and/or symptoms were reported regarding the EENT system. Derm: No signs and/or symptoms reported regarding the dermatologic system. Musculoskeletal: No signs and/or symptoms reported regarding the musculoskeletal system. Vital Signs: 12:36 BP 136 / 98; Pulse 93; Resp 17; Temp 97.1; Pulse Ox 98% ; Weight 107.95 kg; Height 6 bp ft. 3 in. (190.50 cm); 13:11 BP 134 / 98; Pulse 86; Resp 18; Pulse Ox 99% on R/A; Pain 8/10; ld1 14:14 BP 129 / 89; Pulse 82; Resp 18; Pulse Ox 100% on R/A; ld1 12:36 Body Mass Index 29.75 (107.95 kg, 190.50 cm) bp ED Course: 12:32 Patient arrived in ED. am2 12:37 Triage completed. bp 12:37 Arm band placed on. bp 12:41 Jeferson Guo DO is Attending Physician. ms3 12:53 Jade España, RN is Primary Nurse. ld1 13:11 Patient has correct armband on for positive identification. Placed in gown. Bed in low ld1 position. Call light in reach. Side rails up X2. monitor technician on. Pulse ox on. NIBP on. Door closed. Warm blanket given. 13:11 Urine Microscopic Only Sent. ld1 13:11 No provider procedures requiring assistance completed. Inserted saline lock: 20 gauge ld1 in right antecubital area, using aseptic technique. Blood collected. 13:26 CT Abd/Pelvis - IV Contrast Only In Process Unspecified. EDMS 14:06 Toni Thorne MD is Referral Physician. ms3 14:14 IV discontinued, intact, bleeding controlled, No redness/swelling at site. ld1 Administered Medications: 13:11 Drug: NS 0.9% 1000 ml Route: IV; Rate: 1 bolus; Site: left antecubital; ld1 13:11 Drug: Pepcid (famotidine) 20 mg Route: IVP; Site: left antecubital; ld1 13:11 Drug: Zofran (Ondansetron) 4 mg Route: IVP; Site: left antecubital; ld1 Outcome: 14:07 Discharge ordered by . ms3 14:14 Discharged to home ambulatory, with family. ld1 14:14 Condition: stable 14:14 Discharge instructions given to patient, Instructed on discharge instructions, follow up and referral plans. medication usage, Demonstrated understanding of instructions, follow-up care, medications, Prescriptions given X 1. 14:17 Patient left the ED. ld1 Signatures: Dispatcher [employer] EDMS Iveth Navarrete am2 Jair Apple, RN RN bp Jeferson Guo DO DO ms3 Jade España, RN RN ld1
--- NOTE | 2021-10-11 14:08 | EDPHYS ---
Physician Documentation [facility] Name: Leonard Rea Age: 36 yrs Sex: Male : 1985 Arrival Date: 10/11/2021 Time: 12:32 Bed 25 Private MD: ED Physician Jeferson Guo HPI: 10/11 12:53 This 36 yrs old Male presents to ER via Ambulatory with complaints of side pain. ms3 12:53 The patient presents with abdominal pain in the lower abdomen. Onset: The ms3 symptoms/episode began/occurred acutely, 2 week(s) ago. The symptoms do not radiate. Associated signs and symptoms: none. The symptoms are described as Pressure. Modifying factors: The symptoms are alleviated by nothing. Severity of pain: At its worst the pain was severe in the emergency department the pain is unchanged. 36 yo male with pmh of diverticulitis, anxiety, asthma, bipolar disorder, depression presents for lower abdominal pain that began 2 weeks prior to arrival. Patient rates his pain a 10/10 and describes the pain as pressure. Patient denies alleviating or inciting factors. Patient denies fevers, chills, nausea or vomiting.. Historical: - Allergies: 12:37 No Known Allergies; bp - Home Meds: 12:37 None [Active]; bp - PMHx: 12:37 Anxiety; Asthma; Bipolar disorder; Depression; bp - Immunization history:: Client reports having NOT received the Covid vaccine. - Social history:: Smoking status: Patient denies any tobacco usage or history of. ROS: 12:53 Constitutional: Negative for fever, and chills. Eyes: Negative for injury, pain, ms3 redness, and discharge, Neck: Negative for injury, pain, and swelling, Cardiovascular: Negative for chest pain, and palpitations. Respiratory: Negative for shortness of breath, cough, wheezing, and pleuritic chest pain, Back: Negative for injury and pain, : Negative for injury, bleeding, discharge, and swelling, MS/Extremity: Negative for injury and deformity, Skin: Negative for injury, rash, and discoloration. 12:53 Abdomen/GI: Positive for abdominal pain. 12:53 All other systems are negative. Exam: 12:53 Constitutional: This is a well developed, well nourished patient who is awake, alert, ms3 and in no acute distress. Eyes: Pupils equal round and reactive to light, extra-ocular motions intact. Lids and lashes normal. Conjunctiva and sclera are non-icteric and not injected. Periorbital areas with no swelling, redness, or edema. Neck: Trachea midline, no cervical lymphadenopathy. Supple, full range of motion without nuchal rigidity, or vertebral point tenderness. No Meningismus. Chest/axilla: Normal chest wall appearance and motion. Nontender with no deformity. Cardiovascular: Regular rate and rhythm with a normal S1 and S2. No gallops, murmurs, or rubs. Normal PMI, no JVD. No pulse deficits. Respiratory: Lungs have equal breath sounds bilaterally, clear to auscultation and percussion. No rales, rhonchi or wheezes noted. No increased work of breathing, no retractions or nasal flaring. Back: No spinal tenderness. No costovertebral tenderness. Full range of motion. Skin: Warm, dry with normal turgor. Normal color with no rashes, no lesions, and no evidence of cellulitis. Psych: Awake, alert, with orientation to person, place and time. Behavior, mood, and affect are within normal limits. 12:53 Abdomen/GI: Inspection: abdomen appears normal, Bowel sounds: normal, Palpation: moderate abdominal tenderness, in the right lower quadrant and left lower quadrant. Vital Signs: 12:36 BP 136 / 98; Pulse 93; Resp 17; Temp 97.1; Pulse Ox 98% ; Weight 107.95 kg; Height 6 bp ft. 3 in. (190.50 cm); 13:11 BP 134 / 98; Pulse 86; Resp 18; Pulse Ox 99% on R/A; Pain 8/10; ld1 14:14 BP 129 / 89; Pulse 82; Resp 18; Pulse Ox 100% on R/A; ld1 12:36 Body Mass Index 29.75 (107.95 kg, 190.50 cm) bp MDM: 12:53 Patient medically screened. ms3 12:53 Differential diagnosis: appendicitis, bowel obstruction, diverticulitis. ms3 14:07 Data reviewed: vital signs, nurses notes, lab test result(s), radiologic studies. ED ms3 course: Discussed labs, CT scans, PE findings with patient. Patient to follow up with his GI physician as discussed (Dr Jarrett). Patient understands/ agrees with plan. All questions answered. Patient is a/o x4, nad, non-toxic, ambulatory in ED, speaking full sentences, ambulatory in ED, tolerating po. Discussed return precautions with patient to include worsening symptoms, or any other concerns.. 10/11 12:53 Order name: CBC with Diff; Complete Time: 14:05 ms3 10/11 12:53 Order name: CMP; Complete Time: 14:05 ms3 10/11 12:53 Order name: Lipase; Complete Time: 14:05 ms3 10/11 12:53 Order name: Urine Microscopic Only; Complete Time: 14:05 ms3 10/11 12:53 Order name: CT Abd/Pelvis - IV Contrast Only; Complete Time: 14:05 ms3 10/11 13:11 Order name: Urine Dipstick-Ancillary; Complete Time: 14:05 EDMS 10/11 12:53 Order name: IV Saline Lock; Complete Time: 13:01 ms3 10/11 12:53 Order name: Labs collected and sent; Complete Time: 13: ms3 10/11 12:53 Order name: Urine Dipstick-Ancillary (obtain specimen); Complete Time: 13:11 ms3 Administered Medications: 13:11 Drug: NS 0.9% 1000 ml Route: IV; Rate: 1 bolus; Site: left antecubital; ld1 13:11 Drug: Pepcid (famotidine) 20 mg Route: IVP; Site: left antecubital; ld1 13:11 Drug: Zofran (Ondansetron) 4 mg Route: IVP; Site: left antecubital; ld1 Disposition Summary: 10/11/21 14:07 Discharge Ordered Location: Home ms3 Condition: Stable ms3 Diagnosis - Diverticulitis of large intestine without perforation or abscess without bleeding ms3 - Lower abdominal pain, unspecified ms3 - Leukocytosis ms3 Followup: ms3 - With: Toni Thorne MD - When: 2 - 3 days - Reason: Recheck today's complaints Discharge Instructions: - Discharge Summary Sheet ms3 - Diverticulitis, [id number] ms3 Forms: - Medication Reconciliation Form ms3 - Thank You Letter ms3 - Antibiotic Education ms3 - Prescription Opioid Use ms3 Prescriptions: - Augmentin 875-125 mg Oral Tablet - take 1 tablet by ORAL route every 12 hours for 10 days; 20 tablet; Refills: 0, ms3 Product Selection Permitted Signatures: Dispatcher [employer] Jair Palmer, RN RN Jeferson Guo DO DO ms3 Jade España RN RN ld1
[2021-10-11 14:27] VITALS: TEMP 97.1
[2021-10-11 14:30] VITALS: BP 129/89; O2SAT 100
== END 2021-10-11 14:17 | disposition home or self-care (01) ==
LOC: ER 12:31
DX: K57.32 Diverticulitis of large intestine without perforation or abscess without bleeding (principal); D72.829 Elevated white blood cell count, unspecified; F31.9 Bipolar disorder, unspecified
CPT/HCPCS: 36415; 74177; 80053; 81003; 81015; 83690; 85025; 96374; 96375; 99284; J2405; J7030; Q9967

== ENCOUNTER 2022-01-11 15:17 | Inpatient (IN) | payer SELFPAY ==
[2022-01-11] MEDS ORDERED: NA CHLORIDE 0.9% 1,000 ML ONE ×2 (15:58→17:34)
[2022-01-11 16:01] LABS: Absolute Lymphocytes (CBC) 2.5 K/uL (0.7-4.9); Hematocrit 43.7 % (39.6-49.0); Lymphocytes % 14.2 % (15.3-44.8); MCV 82.1 fL (80-100); MPV 8.3 fL (7.6-11.3); RBC Red Blood Cell Count 5.33 M/uL (4.33-5.43)
[2022-01-11 16:16] LABS: Albumin 3.6 g/dL (3.4-5.0); Bilirubin Total 1.3 mg/dL (0.2-1.0); Potassium 3.9 mmol/L (3.5-5.1); Protein, Total 8.4 g/dL (6.4-8.2)
--- NOTE | 2022-01-11 17:04 | RAD REPORT ---
EXAM DESCRIPTION: CT - Abdomen Pelvis W Contrast - 01/11/2022 4:49 pm CLINICAL HISTORY: Abdominal pain COMPARISON: none. TECHNIQUE: Computed axial tomography of the abdomen pelvis was obtained. 100 cc Isovue-300 was admin istered intravenously. Oral contrast was not requested which limits evaluation of bowel and appendix All CT scans are performed using dose optimization technique as appropriate and may include automated exposure control or mA/KV adjustment according to patient size. FINDINGS: Fatty liver Spleen, pancreas, adrenal and kidneys appear unremarkable. Diverticula stem from predominantly the sigmoid colon. Marked stranding within the adjacent fat. Ashlyn ral extraluminal air bubbles contained within the mesocolon. Trace amount of ascites. No abscess Normal sinus IMPRESSION: Marked sigmoid diverticulitis with microperforation
[2022-01-11 17:07] LABS: Urine Blood Negative (Negative); Urine Glucose Negative (Negative); Urine Protein Negative (Negative); Urine pH 6.5 (5.0-7.0)
--- NOTE | 2022-01-11 17:27 | ER ---
Nurse's Notes [facility] Name: Leonard Rea Age: 36 yrs Sex: Male : 1985 Arrival Date: 01/11/2022 Time: 15:19 Bed 6 Private MD: Diagnosis: Diverticulitis of intestine, part unspecified, with perforation and abscess-microperforation, no abscess Presentation: 01/11 15:24 Chief complaint: Patient states: that since Sunday01/08/22 patient has been having ap3 abdominal cramping and decreased appetite. 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 Patient complains of low abdominal pain 6/10 on a pain scale. Coronavirus screen: At this time, the client does not indicate any symptoms associated with coronavirus-19. Ebola Screen: No symptoms or risks identified at this time. Initial Sepsis Screen: Does the patient meet any 2 criteria? No. Patient's initial sepsis screen is negative. Does the patient have a suspected source of infection? No. Patient's initial sepsis screen is negative. Risk Assessment: Do you want to hurt yourself or someone else? Patient reports no desire to harm self or others. Onset of symptoms was January 08, 2022. 15:24 Method Of Arrival: Ambulatory ap3 15:24 Acuity: CHATA 3 ap3 Triage Assessment: 15:28 General: Appears in no apparent distress. Behavior is calm, cooperative. Pain: ap3 Complains of pain in suprapubic area, right lower quadrant and left lower quadrant Pain currently is 7 out of 10 on a pain scale. at worst was 10 out of 10 on a pain scale. Pain began 2-3 days ago. Alleviated by cool water Aggravated by increased activity. Neuro: Level of Consciousness is awake, alert, obeys commands, Oriented to person, place, time, situation, Appropriate for age Speech is normal. Cardiovascular: Patient's skin is warm and dry. Respiratory: Airway is patent Respiratory effort is even, unlabored, Respiratory pattern is regular, symmetrical. GI: Reports lower abdominal pain, nausea. Historical: - Allergies: 15:27 No Known Allergies; ap3 - Home Meds: 15:27 None [Active]; ap3 - PMHx: 15:27 Anxiety; Bipolar disorder; Depression; Asthma; ap3 - Immunization history:: Client reports having NOT received the Covid vaccine. - Social history:: Smoking status: Patient denies any tobacco usage or history of. Patient uses street drugs, marijuana. Screenin:30 Abuse screen: Denies threats or abuse. Nutritional screening: No deficits noted. ap3 Tuberculosis screening: No symptoms or risk factors identified. Fall Risk None identified. Assessment: 15:30 GI: Abdomen is tender to palpation in right lower quadrant and left lower quadrant. ap3 15:56 General: Appears in no apparent distress. comfortable, Behavior is calm, cooperative. ss Neuro: Perales Agitation-Sedation Scale (RASS): 0 - Alert and Calm Level of Consciousness is awake, alert, obeys commands, Oriented to person, place, time, situation. Cardiovascular: Capillary refill < 3 seconds is brisk in bilateral fingers. Respiratory: Airway is patent Respiratory effort is even, unlabored, Respiratory pattern is regular, symmetrical. GI:. Derm: Skin is intact, is healthy with good turgor, Skin is pink, warm \T\ dry. normal. Musculoskeletal: Circulation, motion, and sensation intact. Range of motion: intact in all extremities, Swelling absent. 16:47 Reassessment: Pt in CT now. ss 18:08 Reassessment: Patient appears in no apparent distress at this time. Patient and/or ss family updated on plan of care and expected duration. Pain level reassessed. Patient is alert, oriented x 3, equal unlabored respirations, skin warm/dry/pink. Pt states he has no pain now after morphine administration. RASS 0. Vital Signs: 15:24 BP 137 / 94; Pulse 90; Resp 17; Temp 98.5; Pulse Ox 100% ; Weight 104.33 kg; Height 6 ap3 ft. 3 in. (190.50 cm); 18:52 BP 125 / 78; Pulse 69; Resp 18; Pulse Ox 99% on R/A; ld1 20:05 BP 136 / 94; Pulse 88; Resp 18 S; Pulse Ox 98% on R/A; as6 15:24 Body Mass Index 28.75 (104.33 kg, 190.50 cm) ap3 ED Course: 15:19 Patient arrived in ED. ja2 15:20 Juany Hicks FNP-C [facility]. kb 15:20 Jai Herrera MD is Attending Physician. kb 15:27 Triage completed. ap3 15:30 Arm band placed on right wrist. ap3 15:38 Heidi Riddle, YFN is Primary Nurse. ss 15:45 Inserted saline lock: 20 gauge in right antecubital area, using aseptic technique. ss Blood collected. 15:56 Patient has correct armband on for positive identification. Bed in low position. Call ss light in reach. 16:51 CT Abd/Pelvis - IV Contrast Only In Process Unspecified. EDMS 17:26 Temo Carbajal MD is Hospitalizing Provider. kb 20:05 No provider procedures requiring assistance completed. Patient admitted, IV remains in as6 place. Administered Medications: 15:50 Drug: NS 0.9% 1000 ml Route: IV; Rate: 1 bolus; Site: right antecubital; ss 16:47 Follow up: IV Status: Completed infusion; IV Intake: 1000ml ss 17:30 Drug: Zofran (Ondansetron) 4 mg Route: IVP; Site: right antecubital; ss 18:08 Follow up: Response: No adverse reaction ss 17:32 Drug: morphine 4 mg Route: IVP; Infused Over: 4 mins; Site: right antecubital; ss 18:08 Follow up: Response: No adverse reaction; Marked relief of symptoms; Pain is decreased ss 17:35 Drug: NS 0.9% 1000 ml Route: IV; Rate: 125 ml/hr; Site: right antecubital; ss 18:08 Follow up: IV Status: Infusion continued upon admission ss 17:38 Drug: Flagyl (metroNIDAZOLE) 500 mg Volume: 100 ml; Route: IVPB; Rate: 200 ml/hr; ss Infused Over: 30 mins; Site: right antecubital; 18:08 Follow up: IV Status: Completed infusion; IV Intake: 100ml ss 18:09 Drug: Cipro (ciprofloxacin) 400 mg Volume: 200 ml; Route: IVPB; Infused Over: 60 mins; ss Site: right antecubital; 20:06 Follow up: Response: No adverse reaction; IV Status: Completed infusion; IV Intake: as6 200ml Medication: 15:56 VIS not applicable for this client. ss Intake: 16:47 IV: 1000ml; Total: 1000ml. ss 18:08 IV: 100ml; Total: 1100ml. ss 20:06 IV: 200ml; Total: 1300ml. as6 Outcome: 17:26 Decision to Hospitalize by Provider. kb 20:05 Admitted to Med/surg accompanied by nurse, via wheelchair, room 224, with chart, Report as6 called to Cody COULTER 20:05 Condition: stable 20:05 Instructed on the need for admit. 20:48 Patient left the ED. kd3 Signatures: Dispatcher [employer] EDMS Juany Hicks, [facility]He[facility] Woods, RN RN Iveth Dash RN RN ap3 Jade España RN RN [email or web address] Jazzmine Jackson Ashby RN RN as6 Ernestina Floyd, RN RN kd3
--- NOTE | 2022-01-11 17:27 | EDPHYS ---
Physician Documentation [facility] Name: Leonard Rea Age: 36 yrs Sex: Male : 1985 Arrival Date: 01/11/2022 Time: 15:19 Bed 6 Private MD: YARIEL Physician Jai Herrera HPI: 01/11 20:24 This 36 yrs old Male presents to ER via Ambulatory with complaints of Decreased kb Appetite, Abdominal Cramping, Nausea. 20:24 The patient presents with abdominal pain in the lower abdomen. Onset: The kb symptoms/episode began/occurred 4 day(s) ago. The symptoms do not radiate. Associated signs and symptoms: Pertinent positives: nausea. The symptoms are described as constant. Modifying factors: The symptoms are alleviated by nothing, the symptoms are aggravated by nothing. Severity of pain: At its worst the pain was moderate in the emergency department the pain is unchanged. The patient has not experienced similar symptoms in the past. The patient has not recently seen a physician. Pt reports lower abd pain that started on Sunday. 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 States he has nausea and decreased appetite as well. Does not feel like diverticulitis that he has had in the past. Historical: - Allergies: 15:27 No Known Allergies; ap3 - Home Meds: 15:27 None [Active]; ap3 - PMHx: 15:27 Anxiety; Bipolar disorder; Depression; Asthma; ap3 - Immunization history:: Client reports having NOT received the Covid vaccine. - Social history:: Smoking status: Patient denies any tobacco usage or history of. Patient uses street drugs, marijuana. ROS: 20:23 Constitutional: Negative for fever, chills, and weight loss. kb 20:23 Constitutional: Positive for decreased appetite. 20:23 Abdomen/GI: Positive for abdominal pain, nausea, Negative for vomiting, diarrhea, constipation. 20:23 All other systems are negative. Exam: 20:22 Constitutional: This is a well developed, well nourished patient who is awake, alert, kb and in no acute distress. Head/Face: Normocephalic, atraumatic. ENT: Moist Mucous membranes Cardiovascular: Regular rate and rhythm with a normal S1 and S2. No gallops, murmurs, or rubs. No pulse deficits. Respiratory: Respirations even and unlabored. No increased work of breathing. Talking in full sentences Skin: Warm, dry with normal turgor. Normal color. MS/ Extremity: Pulses equal, no cyanosis. Neurovascular intact. Full, normal range of motion. Neuro: Awake and alert, GCS 15, oriented to person, place, time, and situation. Moves all extremities. Normal gait. Psych: Awake, alert, with orientation to person, place and time. Behavior, mood, and affect are within normal limits. 20:22 Abdomen/GI: Inspection: abdomen appears normal, Bowel sounds: normal, in all quadrants, Palpation: soft, in all quadrants, moderate abdominal tenderness, in the right lower quadrant and left lower quadrant. Vital Signs: 15:24 BP 137 / 94; Pulse 90; Resp 17; Temp 98.5; Pulse Ox 100% ; Weight 104.33 kg; Height 6 ap3 ft. 3 in. (190.50 cm); 18:52 BP 125 / 78; Pulse 69; Resp 18; Pulse Ox 99% on R/A; ld1 20:05 BP 136 / 94; Pulse 88; Resp 18 S; Pulse Ox 98% on R/A; as6 15:24 Body Mass Index 28.75 (104.33 kg, 190.50 cm) ap3 MDM: 15:22 Patient medically screened. kb 17:24 Data reviewed: vital signs, nurses notes. Data interpreted: Pulse oximetry: on room air kb is 100 %. Interpretation: normal. Counseling: I had a detailed discussion with the patient and/or guardian regarding: the historical points, exam findings, and any diagnostic results supporting the discharge/admit diagnosis, lab results, radiology results, the need for further work-up and treatment in the hospital. Physician consultation: Anthony Monroy MD was contacted at 17:25, regarding consult, patient's condition, and will see patient in inpatient room. 17:25 Physician consultation: Temo Carbajal MD was contacted at 17:25, regarding admission, kb patient's condition, and will see patient shortly. 01/11 15:26 Order name: CBC with Diff; Complete Time: 16:13 kb 01/11 15:26 Order name: CMP; Complete Time: 16:17 kb 01/11 15:26 Order name: Lipase; Complete Time: 16:17 kb 01/11 15:26 Order name: CPK; Complete Time: 16:17 kb 01/11 17:07 Order name: Urine Dipstick-Ancillary; Complete Time: 17:14 EDMS 01/11 17:25 Order name: COVID-19 SARS RT PCR (Document "Date of Onset" if Symptomatic); Complete ss Time: 19:30 01/11 15:26 Order name: CT Abd/Pelvis - IV Contrast Only; Complete Time: 17:14 kb 01/11 15:26 Order name: IV Saline Lock; Complete Time: 15:49 kb 01/11 15:26 Order name: Labs collected and sent; Complete Time: 15:49 kb 01/11 15:26 Order name: Urine Dipstick-Ancillary (obtain specimen); Complete Time: 17:24 kb 01/11 17:17 Order name: NPO; Complete Time: 17:24 kb Administered Medications: 15:50 Drug: NS 0.9% 1000 ml Route: IV; Rate: 1 bolus; Site: right antecubital; ss 16:47 Follow up: IV Status: Completed infusion; IV Intake: 1000ml ss 17:30 Drug: Zofran (Ondansetron) 4 mg Route: IVP; Site: right antecubital; ss 18:08 Follow up: Response: No adverse reaction ss 17:32 Drug: morphine 4 mg Route: IVP; Infused Over: 4 mins; Site: right antecubital; ss 18:08 Follow up: Response: No adverse reaction; Marked relief of symptoms; Pain is decreased ss 17:35 Drug: NS 0.9% 1000 ml Route: IV; Rate: 125 ml/hr; Site: right antecubital; ss 18:08 Follow up: IV Status: Infusion continued upon admission ss 17:38 Drug: Flagyl (metroNIDAZOLE) 500 mg Volume: 100 ml; Route: IVPB; Rate: 200 ml/hr; ss Infused Over: 30 mins; Site: right antecubital; 18:08 Follow up: IV Status: Completed infusion; IV Intake: 100ml ss 18:09 Drug: Cipro (ciprofloxacin) 400 mg Volume: 200 ml; Route: IVPB; Infused Over: 60 mins; ss Site: right antecubital; 20:06 Follow up: Response: No adverse reaction; IV Status: Completed infusion; IV Intake: as6 200ml Disposition Summary: 01/11/22 17:26 Hospitalization Ordered Hospitalization Status: Inpatient Admission kb Provider: Temo Carbajal Location: Telemetry/MedSurg (Inpatient) kb Condition: Stable kb Problem: new kb Symptoms: are unchanged kb Bed/Room Type: Standard kb Room Assignment: 221(01/11/22 19:31) eb1 Diagnosis - Diverticulitis of intestine, part unspecified, with perforation and abscess - kb microperforation, no abscess Forms: - Medication Reconciliation Form kb - SBAR form kb Signatures: Dispatcher [employer] EDMS Juany Hicks, [employer]-C [employer]-Heidi Woods RN RN ss Iveth Peralta RN RN ap3 Ashlee Powell RN RN eb1 Carlos León RN as6 Corrections: (The following items were deleted from the chart) 19: 17:26 kb eb1
[2022-01-11] MEDS ORDERED: CIPROFLOXACIN 400mg IV 400 MG/200 ML BAG IV ONE (17:34)
[2022-01-11] MEDS ORDERED: ONDANSETRON 4 MG/2 ML VIAL ONE (17:34)
[2022-01-11] MEDS ORDERED: MORPHINE 4 MG/ML SYR ONE (17:34)
[2022-01-11] MEDS ORDERED: METRONIDAZOLE 500mg IVPB 500 MG/100 ML BAG IV ONE (17:34)
--- NOTE | 2022-01-11 19:17 | P.HP ---
Certification for Inpatient Patient admitted to: Inpatient With expected LOS: <2 Midnights Patient will require the following post-hospital care: None Practitioner: I am a practitioner with admitting privileges, knowledge of patient current condition, hospital course, and medical plan of care. Services: Services provided to patient in accordance with Admission requirements found in Title 42 Section 412.3 of the Code of Federal Regulations <Criselda Leonard - Last Filed: 01/11/22 19:10> Patient History Date of Service: 01/11/22 Reason for admission: Diverticulitis with Microperforation History of Present Illness: Patient is a 36 y/o M who presented to the ED with complaints of abdominal cramping and decreased appetite x 3 days. Patient reports that he was seen here about 1 year ago and diagnosed with diverticulitis and told to follow up with colonoscopy. He said he did not have it done due to financial reasons. He says the pain today is worse than in the past. Labs significant for WBC 17.5. VSS. CT abd/pelv showed sigmoid diverticulitis with microperforation without abscess. Dr. Monroy was notified and agrees to consult on patient. He was started on cipro/flagyl in ED. Upon my assessment, patient reports his pain has subsided with the morphine. He denies N/V. Patient is admitted for further evaluation and treatment. Home medications list reviewed: Yes (NA) - Past Medical/Surgical History Diabetic: No -: Asthma -: Bipolar Disorder -: Depression/Anxiety Past Surgical History: Patient denies surgical history Psychosocial/ Personal History: patient lives at home with family. - Family History Brother -: Hypertension - Social History Smoking Status: Never smoker Alcohol use: Yes CD- Drugs: Yes Caffeine use: Yes Place of Residence: Home <Criselda Leonard - Last Filed: 01/11/22 19:10> Date of Service: 01/14/22 <Temo Carbajal - Last Filed: 01/14/22 07:21> Allergies No Known Allergies Allergy (Verified 01/11/22 22:55) Review of Systems General: Other (decreased appetite) Gastrointestinal: Abdominal Pain <Criselda Leonard - Last Filed: 01/11/22 19:10> Physical Examination - Physical Exam General: Alert, In no apparent distress, Oriented x3 HEENT: Atraumatic, PERRLA, EOMI, Sclerae nonicteric Neck: Supple, 2+ carotid pulse no bruit, No LAD, Without JVD or thyroid abnormality Respiratory: Clear to auscultation bilaterally, Normal air movement Cardiovascular: No edema, Regular rate/rhythm, Normal S1 S2 Gastrointestinal: Normal bowel sounds, No rebound, No guarding, Tenderness (mild LLQ) Musculoskeletal: No tenderness Integumentary: No rashes Neurological: Normal gait, Normal speech, Normal strength at 5/5 x4 extr, Normal tone, Normal affect - Studies Laboratory Data (last 24 hrs) 01/11/22 15:48: Sodium 137, Potassium 3.9, BUN 10, Creatinine 1.18, Glucose 117 H, Total Bilirubin 1.3 H, AST 10 L, ALT 28, Alkaline Phosphatase 77, Lipase 67 L 01/11/22 15:48: WBC 17.5 H, Hgb 14.3, Hct 43.7, Plt Count 265 <Criselda Leonard - Last Filed: 01/11/22 19:10> Assessment and Plan - Problems (Diagnosis) (1) Diverticulitis of intestine with perforation without abscess Current Visit: Yes Status: Acute Qualifiers: Diverticulitis site: large intestine Diverticulitis bleeding: without bleeding Qualified Code(s): K57.20 - Diverticulitis of large intestine with perforation and abscess without bleeding (2) Leukocytosis Current Visit: Yes Status: Acute Qualifiers: Leukocytosis type: unspecified Qualified Code(s): D72.829 - Elevated white blood cell count, unspecified - Plan -NPO -Dr. Monroy consulting -Continue IV cipro, flagyl, and LR -Morphine PRN pain -Lovenox for VTE ppx -Full code Discharge Plan: Home Plan to discharge in: 48 Hours - Advance Directives Does patient have a Living Will: No Does patient have a Durable POA for Healthcare: No - Code Status/Comfort Care Code Status Assessed: Yes (Full) Critical Care: No Time Spent Managing Pts Care (In Minutes): 50 <Criselda Leonard - Last Filed: 01/11/22 19:10> - Problems (Diagnosis) (1) Diverticulitis of intestine with perforation without abscess Current Visit: Yes Status: Acute Qualifiers: Diverticulitis site: large intestine Diverticulitis bleeding: without bleeding Qualified Code(s): K57.20 - Diverticulitis of large intestine with perforation and abscess without bleeding (2) Leukocytosis Current Visit: Yes Status: Acute Qualifiers: Leukocytosis type: unspecified Qualified Code(s): D72.829 - Elevated white blood cell count, unspecified <Temo Carbajal - Last Filed: 01/14/22 07:21> Date of Service: 01/12/22 Subjective: HPI as mentioned above Physical Examination: Vitals: Afebrile vital signs are stable Physical exam: Cardiovascular: Within normal limits. Lungs: Within normal limits Abdomen: Abdominal pain with rebound Neuro: Awake, alert, oriented to person place and time Assessment: 1. Diverticulitis Plan: 1. Continue with current plan of care as mentioned above <Temo Carbajal - Last Filed: 01/14/22 07:21>
[2022-01-11] MEDS ORDERED: ONDANSETRON 4 MG/2 ML VIAL IV PRN (20:55)
[2022-01-11] MEDS ORDERED: ACETAMINOPHEN 500 MG TAB PO PRN (20:55)
[2022-01-11] MEDS: MORPHINE 4 MG/ML SYR IV PRN (21:34)
[2022-01-11] MEDS: Ringers Lactate 1,000 ML IV SCH (21:34)
[2022-01-11 23:08] VITALS: BMI 28.7
[2022-01-12] MEDS: METRONIDAZOLE 500mg IVPB 500 MG/100 ML BAG IV SCH ×3 (00:26→16:42)
[2022-01-12] MEDS: MORPHINE 4 MG/ML SYR IV PRN ×3 (02:40→15:10)
[2022-01-12] MEDS: Ringers Lactate 1,000 ML IV SCH ×3 (05:08→20:35)
[2022-01-12 05:47] LABS: Urine Appearance Clear (Clear); Urine Bilirubin Negative (Negative); Urine Blood Negative (Negative); Urine Color Yellow (Yellow); Urine Glucose Negative (Negative); Urine Protein Negative (Negative); Urine Specific Gravity 1.015 (1.005-1.030); Urine Urobilinogen 0.2 mg/dL (0.2-1.0)
[2022-01-12 06:18] LABS: Magnesium 2.3 mg/dL (1.8-2.4); Potassium 3.7 mmol/L (3.5-5.1)
[2022-01-12 06:19] LABS: Absolute Lymphocytes (CBC) 3.4 K/uL (0.7-4.9); Hematocrit 42.4 % (39.6-49.0); Lymphocytes % 20.7 % (15.3-44.8); MCV 82.5 fL (80-100); RBC Red Blood Cell Count 5.14 M/uL (4.33-5.43)
[2022-01-12 06:37] LABS: Thyroid Stimulating Hormone 3.99 uIU/mL (0.360-3.740)
[2022-01-12] MEDS ORDERED: KCL 20 MEQ/100 mL IVPB 20 MEQ/100 ML BAG IV SCH (08:00)
[2022-01-12] MEDS: ENOXAPARIN 40 MG/0.4 ML SQ SCH (08:28)
[2022-01-12] MEDS: CIPROFLOXACIN 400mg IV 400 MG/200 ML BAG IV SCH ×2 (08:28→20:32)
[2022-01-12 22:21] VITALS: O2SAT 99
[2022-01-13] MEDS: METRONIDAZOLE 500mg IVPB 500 MG/100 ML BAG IV SCH ×3 (01:01→16:35)
--- NOTE | 2022-01-13 02:03 | CON ---
Date of Consultation: 01/12/2022 Diagnosis: Diverticulitis with microperforation. History Of Present Illness: This is the case of a 36-year-old patient, complained of abdominal cramp ing and left lower quadrant pain for about 3 years in duration, associated with nausea, no vomiting. Since he was not getting better, he decided to come to the ER and diagnosed with diverticulitis with microperforation near the area without any abscess. The patient remembers that a year ago, he was d iagnosed with diverticular disease, but he did not proceed with that, even though he was told he may need even a colonoscopy. He has been trying to watch his diet, but at this time just did not work. He denies any trauma. He denies any dysuria, hematuria, hematochezia, or melena. Denies any recent traveling out of the country. Denies any family member sick at home. Denies eating anything out of the usual. Allergies: NONE. Past Medical History: Includes bipolar disorder, asthma. Past Surgical History: None. Social History: He does not smoke. He uses alcohol just occasionally. Family History: Includes hypertension. Review of Systems: Ten points otherwise unremarkable. Physical Examination: General: The patient is awake and alert. HEENT: Pupils are equal, round, and reactive. Anicteric. Neck: Supple. Chest: Clear. Heart: S1 and S2. Abdomen: Soft and depressible. There is left lower quadrant tenderness. No rebound. Extremities: Good capillary refill. Rectal: Deferred. Laboratory Data: Blood work shows a WBC count of 17 with a hemoglobin of 14.3. Potassium is 3.9. C AT scan of abdomen and pelvis interpreted by Dr. Gaviria as marked sigmoid diverticulitis with microp erforation, no abscess seen. Assessment And Plan: This is a 36-year-old patient with recurrent diverticulitis, now with microperf oration. The patient was admitted to the hospital with bowel rest and IV antibiotics. He understand s the options of emergent laparotomy, possible resection, possible ostomy with benefits, alternatives , and risks including, but not limited to infection, bleeding, damage to adjacent structures, anesthe car complication, [place], and even . He also understands the options of IV antibiotics and bowel re st to see if this inflammation subsides and then electively he may have to do a colonoscopy and he wa s also advised to look help from the colorectal surgeons for possible elective excision. The patient understood that if he clinically deteriorates in the next few days, we may have to go for the laparo cinda and he does understand. He was advised the importance of diet and the importance of compliance. ALEX/TAI Voice ID: [id number] Report ID: [id number]
[2022-01-13 04:35] LABS: Absolute Lymphocytes (CBC) 2.8 K/uL (0.7-4.9); Hematocrit 41.4 % (39.6-49.0); Lymphocytes % 23.3 % (15.3-44.8); MCV 82.3 fL (80-100); MPV 8.3 fL (7.6-11.3); RBC Red Blood Cell Count 5.04 M/uL (4.33-5.43)
[2022-01-13] MEDS: Ringers Lactate 1,000 ML IV SCH ×3 (04:45→21:10)
[2022-01-13 04:48] LABS: Potassium 3.8 mmol/L (3.5-5.1)
[2022-01-13] MEDS: CIPROFLOXACIN 400mg IV 400 MG/200 ML BAG IV SCH ×2 (08:34→21:10)
[2022-01-13] MEDS: ENOXAPARIN 40 MG/0.4 ML SQ SCH (08:34)
[2022-01-13] MEDS ORDERED: POTASSIUM CL SA 10 MEQ TAB PO ONE (09:00)
[2022-01-13] MEDS ORDERED: SODIUM CHLORIDE 0.9% 20 ML VIAL IV PRN (13:18)
[2022-01-13] MEDS: PANTOPRAZOLE 40 MG INJ IVP SCH ×2 (13:36→21:10)
[2022-01-14] MEDS: METRONIDAZOLE 500mg IVPB 500 MG/100 ML BAG IV SCH ×2 (01:54→08:24)
[2022-01-14] MEDS: Ringers Lactate 1,000 ML IV SCH (05:18)
--- NOTE | 2022-01-14 07:19 | P.PN ---
Subjective Date of Service: 01/12/22 Patient still having abdominal pain. Mild guarding. Continue with n.p.o. per general surgery recommendation. Patient denies any new complaints. Review of Systems 10-point ROS is otherwise unremarkable Physical Examination - Vital Signs Temperature: 97.6 F Blood Pressure: 122/78 Pulse: 62 Respirations: 18 Pulse Ox (%): 99 - Physical Exam General: Alert, In no apparent distress HEENT: Atraumatic, PERRLA, EOMI Neck: Supple, JVD not distended Respiratory: Clear to auscultation bilaterally, Normal air movement Cardiovascular: Regular rate/rhythm, Normal S1 S2 Gastrointestinal: Hypoactive, Tenderness, Rebound, Guarding Musculoskeletal: No tenderness Integumentary: No rashes Neurological: Normal speech, Normal tone, Normal affect Lymphatics: No axilla or inguinal lymphadenopathy - Studies Medications List Reviewed: Yes Assessment & Plan - Problems (Diagnosis) (1) Diverticulitis of intestine with perforation without abscess Current Visit: Yes Status: Acute Qualifiers: Diverticulitis site: large intestine Diverticulitis bleeding: without bleeding Qualified Code(s): K57.20 - Diverticulitis of large intestine with perforation and abscess without bleeding (2) Leukocytosis Current Visit: Yes Status: Acute Qualifiers: Leukocytosis type: unspecified Qualified Code(s): D72.829 - Elevated white blood cell count, unspecified - Plan -IV antibiotics -IV fluids -Surgery consultation -CBC, CMP, lipase, stool cultures -N.p.o. -Repeat abdominal film -NG tube if condition worsens -Antiemetics - Advance Directives Does patient have a Living Will: No Does patient have a Durable POA for Healthcare: No
--- NOTE | 2022-01-14 07:21 | P.PN ---
Date of Service: 01/13/22 Subjective Feeling much better. Patient did not need any pain medication since yesterday evening. We will go ahead and start him on a clear liquid diet. We will go ahead and advance as tolerated. Repeat CT imaging in the morning. Review of Systems 10-point ROS is otherwise unremarkable Physical Examination - Vital Signs Reviewed - Physical Exam General: Alert, In no apparent distress Respiratory: Clear to auscultation bilaterally, Normal air movement Cardiovascular: Regular rate/rhythm, Normal S1 S2 Gastrointestinal: Hypoactive, Tenderness, Rebound, Guarding Neurological: Normal speech, Normal tone, Normal affect Assessment & Plan - Problems (Diagnosis) (1) Diverticulitis of intestine with perforation without abscess Current Visit: Yes Status: Acute Qualifiers: Diverticulitis site: large intestine Diverticulitis bleeding: without bleeding Qualified Code(s): K57.20 - Diverticulitis of large intestine with perforation and abscess without bleeding (2) Leukocytosis Current Visit: Yes Status: Acute Qualifiers: Leukocytosis type: unspecified Qualified Code(s): D72.829 - Elevated white blood cell count, unspecified - Plan Continue with plan of care as mentioned below: -IV antibiotics -IV fluids -Surgery consultation appreciated -Leukocytosis improved -Clear liquid diet and advance in the morning -Repeat CT imaging - Advance Directives Does patient have a Living Will: No Does patient have a Durable POA for Healthcare: No
--- NOTE | 2022-01-14 07:33 | RAD REPORT ---
EXAM DESCRIPTION: RAD - Abdomen Single View - 01/14/2022 6:52 am CLINICAL HISTORY: diverticulitis COMPARISON: Abdomen Pelvis W Contrast dated 01/11/2022 FINDINGS: Nonobstructive bowel gas pattern. No acute osseous abnormality.Visualized lungs are unrema rkable.No abnormal calcifications. IMPRESSION: Nonobstructive bowel gas pattern.
[2022-01-14 07:48] LABS: Potassium 4.2 mmol/L (3.5-5.1)
[2022-01-14] MEDS: CIPROFLOXACIN 400mg IV 400 MG/200 ML BAG IV SCH (08:24)
[2022-01-14] MEDS: ENOXAPARIN 40 MG/0.4 ML SQ SCH (08:24)
[2022-01-14] MEDS: PANTOPRAZOLE 40 MG INJ IVP SCH (08:25)
[2022-01-14 08:31] VITALS: BP 131/81; TEMP 97.5
--- NOTE | 2022-01-14 08:42 | P.PN ---
Subjective Date of Service: 01/14/22 Chief Complaint: Diverticulitis with Microperforation Subjective: Tolerating diet (clear liquid), Ambulating, Improving, Doing well Review of Systems Unremarkable (denies abdominal pain, nausea, vomiting. Had two formed bowel movements yesterday) Physical Examination - Vital Signs Temperature: 97.5 F Blood Pressure: 131/81 Pulse: 51 Respirations: 16 Pulse Ox (%): 99 - Physical Exam General: Alert, In no apparent distress, Oriented x3 HEENT: Atraumatic, PERRLA, EOMI Respiratory: Clear to auscultation bilaterally, Normal air movement Cardiovascular: Regular rate/rhythm, Normal S1 S2 Gastrointestinal: Normal bowel sounds, No tenderness, No rebound, No guarding Integumentary: No rashes Neurological: Normal speech, Normal tone, Normal affect - Studies Medications List Reviewed: Yes Assessment And Plan - Plan - Problems (Diagnosis) (1) Diverticulitis of intestine with perforation without abscess Current Visit: Yes Status: Acute Qualifiers: Diverticulitis site: large intestine Diverticulitis bleeding: without bleeding Qualified Code(s): K57.20 - Diverticulitis of large intestine with perforation and abscess without bleeding (2) Leukocytosis Current Visit: Yes Status: Acute Qualifiers: Leukocytosis type: unspecified Qualified Code(s): D72.829 - Elevated white blood cell count, unspecified - Plan Continue with plan of care as mentioned below: -IV antibiotics - Cipro + Metronidazole day # 3 - If cleared by Surgery, plan to switch to PO for a total of 7 days -IV fluids -Surgery consultation appreciated -Advance diet as tolerated -Repeat CT imaging pending - Possible discharge today pending CT results and diet toleration Edy Avilez M.D. Discharge Plan: Home Plan to discharge in: 24 Hours - Code Status/Comfort Care Code Status: Full Code Physician Review: Patient Assessed, Agree with Above Assessment and Plan Critical Care: No
--- NOTE | 2022-01-14 09:05 | P.DS ---
Admission Date: 01/11/22 Discharge Date: 01/14/22 Disposition: ROUTINE DISCHARGE Discharge Condition: GOOD Reason for Admission: Diverticulitis with Microperforation - Problems (1) Diverticulitis of intestine with perforation without abscess Current Visit: Yes Status: Acute Qualifiers: Diverticulitis site: large intestine Diverticulitis bleeding: without bleeding Qualified Code(s): K57.20 - Diverticulitis of large intestine with perforation and abscess without bleeding (2) Leukocytosis Current Visit: Yes Status: Acute Qualifiers: Leukocytosis type: unspecified Qualified Code(s): D72.829 - Elevated white blood cell count, unspecified Hospital Course: Mr. Rea is a 36-year-old male who was admitted on 01/12/2020 for acute diverticulitis with microperforation. He was started on ciprofloxacin and metronidazole. General surgery was consulted and recommended conservative management with bowel rest and IV antibiotics. Over the next several days, his symptoms significantly improved and he was able to tolerate a diet. Repeat CT on 01/14/2022 revealed, "sigmoid diverticulitis with contained perforation is similar to 01/11/2022. No drainable collection. No free air." His diet was advanced and he was cleared for discharge by surgery. Surgery recommended outpatient follow-up on 01/18/2022. He was also advised to follow-up with his PCP for outpatient Gastroenterology evaluation for possible colonoscopy once his symptoms improve. He was provided with prescriptions for ciprofloxacin, metronidazole, and ondansetron. Discharge instructions given and all questions answered to his apparent satisfaction. Vital Signs/Physical Exam: Temp Pulse Resp BP Pulse Ox 97.5 F 51 16 131/81 99 01/14/22 08:49 01/14/22 08:49 01/14/22 08:49 01/14/22 08:49 01/14/22 08:49 Laboratory Data at Discharge: WBC 12.1 K/uL (4.3-10.9) H D 01/13/22 03:50 Hgb 14.0 g/dL (13.6-17.9) 01/13/22 03:50 Hct 41.4 % (39.6-49.0) 01/13/22 03:50 Plt Count 306 K/uL (152-406) 01/13/22 03:50 Sodium 138 mmol/L (136-145) 01/14/22 06:26 Potassium 4.2 mmol/L (3.5-5.1) 01/14/22 06:26 BUN 9 mg/dL (7-18) 01/14/22 06:26 Creatinine 0.98 mg/dL (0.55-1.3) 01/14/22 06:26 Glucose 88 mg/dL (74-106) 01/14/22 06:26 Magnesium 2.3 mg/dL (1.8-2.4) 01/12/22 05:35 Total Bilirubin 1.3 mg/dL (0.2-1.0) H 01/11/22 15:48 AST 10 U/L (15-37) L 01/11/22 15:48 ALT 28 U/L (12-78) 01/11/22 15:48 Alkaline Phosphatase 77 U/L (45-117) 01/11/22 15:48 Triglycerides 124 mg/dL (<150) 01/12/22 05:35 Cholesterol 154 mg/dL (<200) 01/12/22 05:35 HDL Cholesterol 33 mg/dL (40-60) L 01/12/22 05:35 Cholesterol/HDL Ratio 4.67 01/12/22 05:35 Lipase 67 U/L (73-393) L 01/11/22 15:48 Home Medications: Ciprofloxacin HCl [Cipro 500 MG Tablet] 500 mg PO BID #8 tab 01/14/22 Metronidazole 500 mg PO TID #12 tablet 01/14/22 Ondansetron [Ondansetron Odt] 4 mg PO Q6HP PRN #10 tab.rapdis 01/14/22 New Medications: Ondansetron [Ondansetron Odt] 4 mg PO Q6HP PRN #10 tab.rapdis PRN Reason: Nausea / Vomiting Ciprofloxacin HCl [Cipro 500 MG Tablet] 500 mg PO BID #8 tab Metronidazole 500 mg PO TID #12 tablet Diet: Regular Activity: Ad juan Followup: NONE,NONE [Primary Care Provider] -
--- NOTE | 2022-01-14 10:01 | RAD REPORT ---
EXAM DESCRIPTION: CTAbdomen Pelvis W Contrast - 01/14/2022 9:50 am CLINICAL HISTORY: diverticulitis w/ microperforation COMPARISON: Abdomen Pelvis W Contrast dated 01/11/2022; Abdomen Pelvis W Contrast dated 10/11/2021 ; Abdomen Pelvis W Contrast dated 12/28/2020; Abdomen Pelvis W Contrast dated 07/18/2019 TECHNIQUE: CT of the abdomen and pelvis was performed with oral and IV contrast. All CT scans are performed using dose optimization technique as appropriate and may include automated exposure control or mA/KV adjustment according to patient size. FINDINGS: Lower chest: No acute abnormality. Liver: No acute abnormality or suspicious lesions. Biliary: No biliary ductal dilatation. Stomach: No significant focal abnormality. Duodenum: No significant focal abnormality. Pancreas: No significant abnormality. Spleen: No significant abnormality. Adrenal: No suspicious lesions. Kidney/ureter: No hydronephrosis. No renal calculi. Retroperitoneum: No retroperitoneal adenopathy. Vascular: No aneurysm. Bowel: Sigmoid diverticulitis with contained perforation measuring 18 mm is unchanged.. None of the o ral contrast enters the contained perforation. Normal appendix. Peritoneum: Inflammatory changes along the sigmoid are similar. Bladder: Nonspecific bladder wall thickening which may be reactive. Reproductive: No adnexal masses. Bones: Irregular sclerosis and partial fusion at the sacroiliac joints. Other: n/a IMPRESSION: Sigmoid diverticulitis with contained perforation is similar to 01/11/2022. No drainable collection. No free air.
== END 2022-01-14 12:15 | disposition home or self-care (01) | DRG 392 ==
LOC: ER 15:17 → ERHOLD 19:31 → 2ND 19:36
PROVIDERS: ADMIT Hospitalist; ATTEND Hospitalist
DX: K57.20 Diverticulitis of large intestine with perforation and abscess without bleeding (principal); F31.9 Bipolar disorder, unspecified; F41.8 Other specified anxiety disorders; J45.909 Unspecified asthma, uncomplicated; Z20.822 Contact with and (suspected) exposure to COVID-19
CPT/HCPCS: 36415; 74018; 74177; 80048; 80053; 80061; 81003; 82550; 83690; 83735; 84439; 84443; 85025; 96361; 96365; 96367; 96375; 99285; C9113; J0744; J1650; J2405; J3480; J3490; J7030; J7120; Q9967; U0003

== ENCOUNTER 2023-09-24 09:45 | Inpatient (IN) | payer SELFPAY ==
--- OUTSIDE RECORDS SUMMARY | 2023-09-24 09:48 | XMS REPORT | Continuity of Care Document ---
Author Name Unknown Address [address] [facility] [address] [place] [address] [facility] thconnect Address [address] [facility] [place] [address] Care Team Providers Care Bleach Boiler Filler Name Role Phone Cheryl Bradford Grady Attending Clinician CHRISTIANA Chase Attending Clinician CHRISTIANA Chase Attending Clinician Tarik ble 1, [facility] Attending Clinician Unavail Christiana Garcia MD Attending Clinician Doctor Unassigned, Swisher Attending Clinician U navailable Only, [facility] Test Attending Clinician Unavailable Rudi Mullins MD Attending Clinician Physician, No Primary or Family Admitting Clinic landon Unavailable Payers Payer Name Policy Type Policy Number Effective Date Expirati on Date Source [employer] [id number] 2019 00:00:00 Problems Condition Name Condition Details Condition Category Status Onset Date Resolution Date Last Treatment Date Treating Clinician Comments Source Encounter for fertility planning Encounter for fertility planning Diagnosis Active [facility] Allergies, Adverse Reactions, Alerts Allergy Name Allergy Type Status Severity Reaction(s) Onset Date Inactive Date Treating Clinician Comments Source No Known Allergie s DA Active U 12-25 00:00: 00 [facility] NO KNOWN ALLERGIE S Drug Class Active General acute hospital Social History Social Habit Start Date Stop Date Quantity Comments Source Sex Assigned At [facility] Exposure to SARS-CoV-2 (event) Not sure [facility] Smoking Status Start Date Stop Date Source Unknown if ever smoked [facility] Medications Ordered Medication Name Filled Medication Name Start Date Stop Date Current Medication? Ordering Clinician Indication Dosage Frequency Signature (SIG) Comments Components Source Noe Basic Noe Basic Yes Codie Dennehotso not defined [facility] Nexium Nexium Yes Codie Ricky 1 capsule [facility] Divalproex Sodium Divalproex Sodium Yes Codie Ricky 1 tablet [facility] Calm Plus Calm Plus Yes Codie Ricky as directed [facility] Fish Oil Fish Oil Yes Codie Dennehotso 1 capsule [facility] Xyzal Xyzal Yes Codie Dennehotso not defined [facility] Escitalopra m Oxalate Escitalopra m Oxalate Yes Codie Dennehotso 1 tablet [facility] Procedures Procedure Date / Time Performed Performing Clinicia n Source SLEEP STUDY DATA REPORT 2020-03-02 05:01:00 Doctor Unassigned, Swisher [facility] ASSIGNMENT OF BENEFITS 2020-02-10 16:28:21 Docto r Unassigned, Swisher [facility] Encounters Start Date/Time End Date/Time Encounter Type Admission Type Attending [facility] Facility Care Department Encounter ID Source 2021-08-10 11:03:53 Outpatient [facility] [id number] [facility] 2022-12-25 08:44:00 2022-12-25 12:58:00 Emergency EM Cheryl Bradford [facility] [id number] [facility] [place] 2020-03-02 20:00:00 2020-03-02 20:00:00 Outpatient CHRISTIANA KEBEDE STRAHIL [facility] [id number] General acute hospital 2020-03-02 13:30:04 2020-03-02 16:00:04 Refinery Operator Visit 1, [facility] Sleep Lab Bed [facility] 1.2.840.114 350.1.13.10 4.2.7.2.686 [id number] 2020-03-02 13:30:04 2020-03-02 16:00:04 Refinery Operator Visit 1, [facility] Sleep [facility] Bed Lenny Chowdhurysilvia King [facility] 1.2.840.114 350.1.13.10 4.2.7.2.686 [id number] General acute hospital 2020-03-02 00:00:00 2020-03-02 00:00:00 Orders Only Doctor Unassigned, Swisher [facility] 1.2.840.114 350.1.13.10 4.2.7.2.686 [id number] 2020-03-02 00:00:00 2020-03-02 00:00:00 Orders Only Doctor Unassigned, Swisher [facility] 1.2.840.114 350.1.13.10 4.2.7.2.686 [id number] General acute hospital 2020-02-27 10:53:49 2020-02-27 11:08:49 Laboratory Only Only, [facility] Test [facility] 1.2.840.114 350.1.13.10 4.2.7.2.686 [id number] 2020-02-27 10:53:49 2020-02-27 11:08:49 Laboratory Only Only, [facility] Test Rudi Mullins [facility] 1.2.840.114 350.1.13.10 4.2.7.2.686 [id number] General acute hospital 2020-02-27 11:00:00 2020-02-27 11:00:00 Outpatient R [facility] [id number] General acute hospital 2020-02-12 20:00:00 2020-02-12 20:00:00 Outpatient R CHRISTIANA CHOWDHURY STRAHIL [facility] [id number] General acute hospital 2020-02-12 14:19:31 2020-02-12 16:49:31 Refinery Operator Visit 1, [facility] Sleep Lab Bed [facility] 1.2.840.114 350.1.13.10 4.2.7.2.686 [id number] 2020-02-12 14:19:31 2020-02-12 16:49:31 Refinery Operator Visit 1, [facility] Bed Gene Chowdhurypradeep Fernando [facility] 1.2.840.114 350.1.13.10 4.2.7.2.686 [id number] General acute hospital 2020-02-10 11:27:44 2020-02-10 11:42:44 Laboratory Only Only, [facility] Test [facility] 1.2.840.114 350.1.13.10 4.2.7.2.686 [id number] 2020-02-10 11:27:44 2020-02-10 11:42:44 Laboratory Only Only, [facility] Test Christiana Chowdhury [facility] 1.2.840.114 350.1.13.10 4.2.7.2.686 [id number] General acute hospital 2020-02-10 11:15:00 2020-02-10 11:15:00 Outpatient R CHRISTIANA CHOWDHURY STRAHIL [facility] [id number] General acute hospital 2020-02-10 00:00:00 2020-02-10 00:00:00 Orders Only Doctor Unassigned, Swisher [facility] 1.2.840.114 350.1.13.10 4.2.7.2.686 [id number] 2020-02-10 00:00:00 2020-02-10 00:00:00 Orders Only Doctor Unassigned, Swisher [facility] 1.2.840.114 350.1.13.10 4.2.7.2.686 [id number] General acute hospital 2019-08-12 16:00:00 2019-08-12 16:00:00 [facility] [id number] [facility] Results Test Description Test Time Test Comments Results Result Co mments Source Indication for culture: RiskForSepsis-no oth srcSpecimen Description: CLEAN CATCH- CT ABD PELVIS W/DNRZ3432-29-01 11:16:00 [facility] : 1985 Sex: MPatient Name: CATRINA ANDREWS Unit No: [id number] EXAMS: CPT CODE: [id number] CT ABD PELVIS W/CONT [id number] EXAMINATION: - CT ABD PELVIS W/CONT COMPARISON: None HISTORY: Abdominal pain LOCATION CODE:C3 TECHNIQUE: CT of the Abdomen and Pelvis with intravenous contrast. Oral contrast was not administered. Axial contrast enhanced images of the abdomen and pelvis were obtained and reviewed in soft ti ssue, bone and lung windows. Coronal and sagittal reconstructed images were also provided for review. All CT scans are performed using dose optimization techniques as appropriate to a performed exam including one or more of the following: ?Automated exposure control ?Adjustment of the mA and/or kV according to patient size ?Use of iterative reconstruction technique FINDINGS ABDOMEN: The liver, gallbladder and biliary tree, spleen, pancreas, adrenal glands and kidneys are normal. There is minimal prominence of the left ureter. Findings are likely secondary to a recently passed stone as a 2 mm calcification is seen at the left UVJ. There is no free air, free fluid or lymphadenopathy. The bowel, including the appendix, is normal. The vessels are normal and the lung bases are clear. Bilateralpars defects noted at L5. FINDINGS PELVIS: The urinary bladder, prostate and seminal vesicles are normal. There is no free air, free fluid or lymphadenopathy. There is thickening of the morgan of the mid sigmoid colon without significant associated inflammatory change. Further evaluation with colonoscopy is recommended. The more distal sigmoid colon rectum are normal in appearance. The vessels areunremarkable. 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 IMPRESSION: Minimal prominence of the leftureter, most likely secondary to a tiny stone at the left UVJ Focal thickening of the mid sigmoid colon without evidence of significant inflammatory change. Whether the findings are related to a process such as inflammatory bowel disease is unclear (patient with partially fused sacroiliac joints). Dedicated colonoscopy is recommended [facility] [address] [facility] : 1985 Age: 37 [place]: [place] [phone] Loc: [place].ERS Exam Date: 12/25/2022 Status: REG ER PH: FAX: PAGE 1 Signed Report (CONTINUED) Patient Name: CATRINA ANDREWS Unit No: [id number] EXAMS: CPT CODE: [id number] CT ABD PELVIS W/CONT 64427 (Continued) at 1116 Reported and signed by: Melisa Navarro MD CC: Lux Elias MD; Cheryl Bradford MD Technologist: Everton Sylvester CTDI: 8.72 DLP: 542.68 Trscr Dt/Tm: 12/25/2022 (1116) by:[email or web address] Electronic Signature Date/Time: 12/25/2022 (1116)Orig Print D/T: S: 12/25/2022 (1120) Name: CATRINA ANDREWS [facility] Phys: Lux Ruth [address] [facility] : 1985 Age: 37 Sex: [place] [phone] Loc: [place].ERS Exam Date: 12/25/2022 Status: REG ER PH: FAX: PAGE 2 Signed ReportBASIC METABOLIC [id number] 09:53:00* Test Item Value Reference Range Interpretation Comme nts SODIUM (test code = NA) 136 mmol/L 135-145 N POTASSIUM (test code = K) 3.9 mmol/L 3.5-5.1 N CHLORIDE (test code = CL) 107 mmol/L 98-107 N CARBON DIOXIDE (test code = CO2) 28 mmol/L 21-32 N ANION GAP (test code = GAP) 4.9 2.0-16.0 N GLUCOSE (test code = GLU) 111 mg/dL 65-99 H BLOOD UREA NITROGEN (test code = BUN) 9 mg/dL 4-23 N GLOMERULAR FILTRATION RATE (test code = GFR) >=60 max estimate ml/min The Glomerular Filtration Rate is a calculated parameterbased on serum Creatinine, patient age and sex. GFR valuesless than 60 mL/min/1.73 square meters are indicative ofChronic Kidney Disease. Values less than 15 mL/min/1.73square meters indicate Kidney failure. The calculation forGFR is based on the CKD-EPI (2020) calculation. This formulais race indifferent and is the recommended formula for GFRby the National Kidney Foundation for Adults.The GFR will not calculate if the sex is unknown or if thepatient's age is <18 years. CREATININE (test code = CREAT) 1.1 mg/dL 0.6-1.5 N BUN/CREATININE RATIO (test code = BUN/CREA) 8.2 12.0-20.0 L CALCIUM (test code = CA) 9.6 mg/dL 8.5-10.1 N LIVER FUNCTION [id number] 09:53:00* Test Item Value Reference Range Interpretation Comme nts TOTAL PROTEIN (test code = PROT) 9.0 g/dL 6.4-8.2 H ALBUMIN (test code = ALB) 4.0 g/dL 3.4-5.0 N GLOBULIN (test code = GLOB) 5.0 g/dL 2.3-3.5 H BILIRUBIN TOTAL (test code = BILT) 0.3 mg/dL 0.2-1.2 N Use of this a ssay is not recommended for patients undergoingtreatment with Eltrombopag due to the potential for falselyelevated results. BILIRUBIN DIRECT (test code = BILD) 0.1 mg/dL 0.0-0.3 N BILIRUBIN INDIRECT (test code = BILIND) 0.2 mg/dL 0.0-0.8 N SGOT/AST (test code = AST) 12 U/L 15-37 L SGPT/ALT (test code = ALT) 25 U/L 6-50 N ALKALINE PHOSPHATASE (test code = ALKP) 93 U/L 45-117 N [id number] 09:53:00* Test Item Value Reference Range Interpretation Comme nts LIPASE (test code = LIP) 173 U/L 73-393 N PROTHROMBIN [id number] 09:44:00* Test Item Value Reference Range Interpretation Comme nts PROTHROMBIN TIME PATIENT (test code = PTP) 13.8 SECONDS 9.4-12.5 H INTERNATIONAL NORMAL RATIO (test code = INR) 1.3 RATIO 0.8-1.1 H THE INR IS USEFU L ONLY FOR MONITORING ANTICOAGULANT THERAPY.IT MAY BE UNRELIABLE IN THE INITIAL PHASE OF ANTICOAGULATIONAND IN UNSTABLE PATIENTS. 2.0-3.0 is the recommended INR for the following:Prevention of venous thrombolism in high-risk patients;treatment of venous thrombosis and pulmonary embolism aftera course of heparin; prevention of systemic embolism in avariety of condition, including atrial fibrillation andprosthetic tissue heart valves.2.5-3.5 is the recommended INR for the following:Prosthetic mechanical heart values and/or recurrent systemicembolization. THROMBOPLASTIN TIME [id number] 09:44:00* Test Item Value Reference Range Interpretation Comme [facility] THROMBOPLASTIN TIME PARTIAL (test code = PTT) 32.2 SECONDS 25.1-36.5 N CBC W/AUTO [id number] 09:35:00* Test Item Value Reference Range Interpretation Comme nts WHITE BLOOD CELL (test code = WBC) 12.5 10 3/uL 4.5-11.0 H RED BLOOD CELL (test code = RBC) 5.28 10 6/uL 4.30-5.90 N HEMOGLOBIN (test code = HGB) 14.3 g/dL 14.0-18.0 N HEMATOCRIT (test code = HCT) 44.0 % 40.0-55.0 N MEAN CELL VOLUME (test code = MCV) 83 fL 81-102 N MEAN CELL HGB (test code = MCH) 27.1 pg 26.0-34.0 N MEAN CELL HGB CONCENTRATION (test code = MCHC) 32.5 g/dL 31.0-37.0 N RED CELL DISTRIBUTION WIDTH (test code = RDW) 13.8 % 11.6-14.4 N PLATELET COUNT (test code = PLT) 382 10 3/uL 150-400 N MEAN PLATELET VOLUME (test code = MPV) 10.2 fL 9.0-12.6 N NEUTROPHIL % (test code = NT%) 60.5 % 33.0-76.0 N IMMATURE GRANULOCYTE % (test code = IG%) 0.4 % 0.0-1.0 N LYMPHOCYTE % (test code = LY%) 28.6 % 14.0-56.4 N MONOCYTE % (test code = MO%) 8.6 % 0.0-12.9 N EOSINOPHIL % (test code = EO%) 1.4 % 0.0-7.0 N BASOPHIL % (test code = BA%) 0.5 % 0-2.0 N NUCLEATED RBC % (test code = NRBC%) 0.0 % 0-0.2 N NEUTROPHIL # (test code = NT#) 7.54 10 3/uL 1.5-7.0 H IMMATURE GRANULOCYTE # (test code = IG#) 0.050 x10 3/uL 0.000-0.100 N LYMPHOCYTE # (test code = LY#) 3.56 10 3/uL 1.50-4.00 N MONOCYTE # (test code = MO#) 1.07 10 3/uL 0.20-0.80 H EOSINOPHIL # (test code = EO#) 0.18 10 3/uL 0.0-0.5 N BASOPHIL # (test code = BA#) 0.06 10 3/uL 0.0-0.1 N NUCLEATED RBC # (test code = NRBC#) 0.000 10 3/uL 0.000-0.012 N Notes Date/Time Note Provider Source 2022-12-25 10:13:00 [id number]:13:254648-[address] [place] [id number] [facility] [id number] PATIENT NAME: CATRINA ANDREWS ADMIT DATE: 12/25/22ACCOUNT NO: [id number] ROOM NO: AGE: 37 REPORT TYPE: eELECTROCARDIOGRAM SEX: M ADMITTING PHYSICIAN: ATTENDING PHYSICIAN: Order:[id number] Reason : Test Date/Time Stamp:SunDec 25 2022 10:13:20Blood Pressure : / mmHGVent. Rate : 102 BPM Atrial Rate : 173 BPM P-R Int : 135 ms QRS Dur : 105 ms QT Int : 371 ms P-R-T Axes : 238 030 057 degrees QTc Int : 484 ms Atrial flutter with predominant 3:[address] elevation, inferior leadsBorderline prolonged QT intervalPoor R wave progressionAbnormal ECG Confirmed by MD Chen Peter ([id number]) on 12/25/2022 8:12:48 PM Referred By: Cheryl Bradford Confirmed by:Adam Chen MD at [address] [facility] [id number] [facility] [address] PATIENT NAME: CATRINA ANDREWS .[id number] le for patient [id number]:13:15 H [facility] 2022-12-25 09:10:00 [id number]:10:00 [facility] ([facility])EMERGENCY PROVIDER REPORTREPORT#:[id number] REPORT STATUS: SignedDATE:12/25/22 TIME: 09 PATIENT: CATRINA ANDREWS UNIT #: [id number]#: [id number] ROOM: BED:AGE: 37 SEX: M PCP PHYS: No Primary or Family PhysicianSERVICE AUTHOR: Lux Elias MD R3 * ALL edits or amendments must be made on the electronic/computer document * Lux Elias S 12/25/22 0910:HPI-General Illness GeneralInitial Greet Date/Time 12/25/22 0853 PresentationChief Complaint Flank pain Free Text HPI NotesFree Text HPI Notes37 male past medical history of diverticulosis comes emergency department for abdominal flank pain. Patient had a left flank and abdominal pain. Symptoms for 24 hours. Patient endorsed blood per rectum. Has had vomiting. No fevers chills. Review of Systems ROS StatementsAll systems rev neg except as marked.Complete sys rev neg except as marked. Free Text ROS NotesFree Text ROS NotesEndorse: Abdominal pain, flank painDenies fever chills nausea vomiting Past Medical History - AdultStated Complaint RIGHT FLANK BACK PAINAllergiesCoded Allergies:No Known Allergies (12/25/22) Pt reports no significant: Past surgical historyAdditional Medical HistoryDiverticulosis Physical Exam Vital SignsVital SignsFirst Documented: Result Date Time Pulse Ox 100 12/25 0845 B/P 138/93 / 0845 B/P Mean 108 / 0845 O2 Delivery Room air 12/25 0845 Temp 37.1 12/25 0845 Pulse 60 / 0845 Resp 16 12/25 0845 Last Documented: Result Date Time Pulse Ox 99 12/25 1236 B/P 123/84 06/ 1231 B/P Mean 99 / 1231 Pulse 61 06/12 1231 O2 Delivery Room air 12/25 0845 Temp 37.1 12/25 0845 Resp 16 12/25 0845 Review of Vital Signs Reviewed Physical ExamGeneral/Const General/Const Awake, Alert Distress/Hydration Distress mild. Eyes Eyes PERRL, EOMIEars/Nose/Throat Ears/Nose/Throat Airway patent, Mucous membranes moistMS Neck Neck Supple, No meningismusResp/Chest Respiratory/Chest Breath sounds NL, Breath sounds = bilat, No respiratory distressCardiovascular Cardiovascular Heart rate NL, Heart sounds NL, Cap refill not delayed, Peripheral circulation NLAbdomen/GI Abdomen/GI Soft, Non-tender, No guarding, No distentionMS Back Back No CVA tendernessSkin Skin Warm, DryRectum Text/Dict NotesExternal hemorrhoid noted, no gross blood per rectumNeurologic Neurologic Oriented X3, Speech NL, No motor deficits Interpretation Diagnostics Lab Results InterpretationResultsLaboratory Tests 12/25/22910:[Embedded Image Not Available]Laboratory Tests: 12/25 910 Chemistry Sodium (135 - 145 mmol/L) 136 Potassium (3.5 - 5.1 mmol/L) 3.9 Chloride (98 - 107 mmol/L) 107 Carbon Dioxide (21 - 32 mmol/L) 28 Anion Gap (2.0 - 16.0) 4.9 BUN (4 - 23 mg/dL) 9 Creatinine (0.6 - 1.5 mg/dL) 1.1 Glomerular Filtr Rate (ml/min) >=60 max estimate BUN/Creatinine Ratio (12.0 - 20.0) 8.2 L Glucose (65 - 99 mg/dL) 111 H Calcium (8.5 - 10.1 mg/dL) 9.6 Total Bilirubin (0.2 - 1.2 mg/dL) 0.3 Direct Bilirubin (0.0 - 0.3 mg/dL) 0.1 Indirect Bilirubin (0.0 - 0.8 mg/dL) 0.2 AST (15 - 37 U/L) 12 L ALT (6 - 50 U/L) 25 Total Alk Phosphatase (45 - 117 U/L) 93 Total Protein (6.4 - 8.2 g/dL) 9.0 H Albumin (3.4 - 5.0 g/dL) 4.0 Globulin (2.3 - 3.5 g/dL) 5.0 H Lipase (73 - 393 U/L) 173 Coagulation INR (0.8 - 1.1 RATIO) 1.3 H APTT (25.1 - 36.5 SECONDS) 32.2 PT Patient/Control Mix (9.4 - 12.5 SECONDS) 13.8 H Hematology WBC (4.5 - 11.0 10 3/uL) 12.5 H RBC (4.30 - 5.90 10 6/uL) 5.28 Hgb (14.0 - 18.0 g/dL) 14.3 Hct (40.0 - 55.0 %) 44.0 MCV (81 - 102 fL) 83 MCH (26.0 - 34.0 pg) 27.1 MCHC (31.0 - 37.0 g/dL) 32.5 RDW (11.6 - 14.4 %) 13.8 Plt Count (150 - 400 10 3/uL) 382 MPV (9.0 - 12.6 fL) 10.2 Neut % (Auto) (33.0 - 76.0 %) 60.5 Lymph % (Auto) (14.0 - 56.4 %) 28.6 Banks % (Auto) (0.0 - 12.9 %) 8.6 Eos % (Auto) (0.0 - 7.0 %) 1.4 Baso % (Auto) (0 - 2.0 %) 0.5 Neut # (Auto) (1.5 - 7.0 10 3/uL) 7.54 H Lymph # (Auto) (1.50 - 4.00 10 3/uL) 3.56 Banks # (Auto) (0.20 - 0.80 10 3/uL) 1.07 H Eos # (Auto) (0.0 - 0.5 10 3/uL) 0.18 Baso # (Auto) (0.0 - 0.1 10 3/uL) 0.06 Abs Immat Gran (auto) (0.000 - 0.100 x10 3/uL) 0.050 Immature Gran % (0.0 - 1.0 %) 0.4 Nucleated RBC % (0 - 0.2 %) 0.0 Nucleated RBCs # (0.000 - 0.012 10 3/uL) 0.000 Urines Urine Color (YELLOW) YELLOW Urine Appearance (CLEAR) CLEAR Urine pH (5.0 - 8.0) 6.0 Ur Specific [place] (1.005 - 1.025) 1.014 Urine Protein (NEGATIVE) NEGATIVE Urine Glucose (UA) (NEGATIVE) NEGATIVE Urine Ketones (NEGATIVE) NEGATIVE Urine Blood (NEGATIVE) 3+ H Urine Nitrite (NEGATIVE) NEGATIVE Urine Bilirubin (NEGATIVE) NEGATIVE Urine Urobilinogen (0.1 - 0.2 EU/dL) NEGATIVE Ur Leukocyte Esterase (NEGATIVE) NEGATIVE Urine RBC (0 - 3 /hpf) 31-50 H Urine WBC (0 - 3 /hpf) 0-2 Ur Squamous Epith Cells (FEW /HPF) RARE Calcium Oxalate Crystal (NONE SEEN /hpf) RARE Urine Bacteria (NEGATIVE /HPF) RARE Urine Mucus (/lpf) MODERATE Recent Impressions:CAT SCAN - CT ABD PELVIS W/CONT 12/25 1050 Report Impression - Status: SIGNED Entered: 12/25/2022 1120 IMPRESSION: Minimal prominence of the left ureter, most likely secondary to a tinystone at the left UVJFocal thickening of the mid sigmoid colon without evidence ofsignificant inflammatory change. Whether the findings are related toa process such as inflammatory bowel disease is unclear (patient withpartially fused sacroiliac joints). Dedicated colonoscopy isrecommendedImpression By: Melisa Clark MD ECG #1 InterpretationText/Dict NoteNormal sinus rhythmNormal axisNo STEMIDate 12/25/22Time 0919Interpreted by and reviewed by me Re-Evaluation MDM Free Text MDM NotesAdditional TextMDM discharge: Differential diagnosis include DiverticulitisHemorrhoidsDiverticulosisNephrolithiasisRenal colic Patient comes to the emergency department for flank abdominal pain. Patient's abdominal exam overall reassuring. Mild wall thickening of intestines noted on imaging could be from diverticulitis flare from patient's baseline diverticulosis. Patient's blood per stool likely from external hemorrhoid notedon exam. Patient's flank pain has historical character distribution consistent with nephrolithiasis. Patient educated on symptomatic care for renal colic. Noevidence of large hydronephrosis or hydroureter indicating obstructing stone based off of imaging. Patient discharged home with education on symptomatic control and return precautions to ED. The patient likely has Acute renal colic . Decision regarding hospitalization/admission/transfer/discharge was considered and discharge was decided upon after reviewing risks/benefits/alternatives. Decision regarding discharge was made due to the low risk of morbidity because of reassuring labs imaging exam. Patient discharged home with prescription for symptomatic relief. Education to follow-up with PCP and given strict return precautions to the ED. ED CourseMedication(s) OrderedMedication(s) Ordered:Central Nervous System Agents Sig/Janice Start time Last Medication Dose Route Stop Time Status Admin Morphine Sulfate 4 MG X1ED STA 12/25 0905 DC 12/25 IV 12/25 905 0918 Diagnostic Agents Sig/Janice Start time Last Medication Dose Route Stop Time Status Admin Iopamidol 0 .STK-MED ONE 12/25 1045 DC .ROUTE Electrolytic, Caloric, And Elver Sig/Janice Start time Last Medication Dose Route Stop Time Status Admin Sodium Chloride 1,000 ML X1ED STA 12/25 0905 DC 12/25 IV 12/25 1004 0917 Gastrointestinal Drugs Sig/Janice Start time Last Medication Dose Route Stop Time Status Admin Ondansetron HCl 4 MG X1ED PRN PRN 12/25 0815 DCD 12/25 IV 01/24 0916 0918 Patient Discharge Departure Vital Signs/ConditionVital SignsFirst Documented: Result Date Time Pulse Ox 100 12/25 0845 B/P 138/93 12/25 0845 B/P Mean 108 / 0845 O2 Delivery Room air 12/25 0845 Temp 37.1 12/25 0845 Pulse 60 12/25 0845 Resp 16 12/25 0845 Last Documented: Result Date Time Pulse Ox 99 12/25 1236 B/P 123/84 12/25 1231 B/P Mean 99 12/25 1231 Pulse 61 / 1231 O2 Delivery Room air 12/25 0845 Temp 37.1 12/25 0845 Resp 16 12/25 0845 All vital signs available at the time of this entry have been reviewed. Clinical ImpressionClinical ImpressionPrimary Impression: Renal colicSecondary Impressions: Abdominal pain, Acute hemorrhoid Disposition DecisionDischarge )( Discharged to Home Yes )( Time 1250 )( Date 12/25/22 Discharge/Care PlanCounseled Regarding Diagnosis, Lab results, Imaging studies, Prescriptions, Needfor follow-up, When to return to ED(Auto) PrescriptionsCurrent Visit ScriptsKetorolac (Toradol) 10 MG PO Q6H PRN PRN PAIN 5 Days #20 TABS Patient Instructions ED Kidney Stone with PainAdditional InstructionsPlease return to the emergency department if your conditions worsens. If you have any uncontrollable fever, chest pain, nausea, vomiting, dizziness or visionchanges please return to the emergency department. Please follow-up with your primary care physician in regards to your visit today. Thank you for choosing [facility]. Discharge NoteI have spoken with the patient and/or caregivers. I have explained the patient'scondition, diagnoses and treatment plan based on the information available to meat this time. I have answered the patient's and/or caregiver's questions and addressed any concerns. The patient and/or caregivers have as good an understanding of the patient's diagnosis, condition and treatment plan as can beexpected at this point. The vital signs have been stable. The patient's condition is stable and appropriate for discharge from the emergency department. The patient will pursue further outpatient evaluation with the primary care physician or other designated or consulting physician as outlined in the discharge instructions. The patient and/or caregivers are agreeable to this planof care and follow-up instructions have been explained in detail. The patient and/or caregivers have received these instructions in written format and have expressed an understanding of the discharge instructions. The patient and/or caregivers are aware that any significant change in condition or worsening of symptoms should prompt an immediate return to this or the closest emergency department or a call to 911. Cheryl Bradford 12/26/22 1511:Patient Discharge Departure Supervising Physician Note Resident Saw PtThis patient was seen by a resident. I have personally seen the patient, performed the critical or nails portions of the service, and participated in the management of the patient. I have reviewed the resident's note, and I have reviewed all labs, ECGs, and imaging studies or reports. Portions of my exam anddocumentation are included in this note. at 1442 at 1514RPT #:[id number] OF REPORTThe Hospitals of [facility] department [id number] for patient [id number] CAMPOS Daly
[2023-09-24 10:24] LABS: Absolute Eosinophils 0.1 K/uL (0-0.5); MCHC 33.6 g/dL (32.0-36.0); Neutrophils % 75.3 % (41.7-73.7)
[2023-09-24 10:28] LABS: Absolute Basophils 0.1 K/uL (0-0.5); Absolute Lymphocytes (CBC) 2.8 K/uL (0.7-4.9); Absolute Monocytes 1.6 K/uL (0.1-1.3); Absolute Neutrophil 14.1 K/uL (1.8-8.0); Basophils % 0.7 % (0-1.3); Eosinophils % 0.5 % (0-4.4); Hemoglobin 13.8 g/dL (13.6-17.9); Lymphocytes % 15.2 % (15.3-44.8); MCH 26.6 pg (27.0-35.0); MCV 79.1 fL (80-100); MPV 8.1 fL (7.6-11.3); Monocytes % 8.3 % (3.3-12.3); Platelets 331 thou/uL (152-406); RBC Red Blood Cell Count 5.19 M/uL (4.33-5.43); Red Cell Distribution Width 14.6 % (12.1-15.2)
[2023-09-24] MEDS ORDERED: ONDANSETRON 4 MG/2 ML VIAL ONE (10:33)
[2023-09-24] MEDS ORDERED: KETOROLAC 30 MG/ML INJ ONE (10:34)
[2023-09-24] MEDS ORDERED: NA CHLORIDE 0.9% 1,000 ML ONE ×2 (10:34→15:21)
[2023-09-24 10:40] LABS: Albumin 3.5 g/dL (3.4-5.0); Albumin/Globulin Ratio 0.6 (1.1-1.8); Anion Gap 8.9 mEq/L (5.0-15.0); Bilirubin Total 0.7 mg/dL (0.2-1.0); Globulin 5.5 g/dL (2.3-3.5); Potassium 3.9 mEq/L (3.5-5.1)
[2023-09-24 10:45] LABS: Band Neutrophils 4 % (0-1); Differential Total Cells Count 100; Eosinophils 1 % (0-3); Lymphocytes 22 % (15-42); Monocytes 6 % (0-10); Platelets Clumped NOTED; Segmented Neutrophils 67 % (40-80); White Blood Cell Scan OK (OK)
[2023-09-24 10:46] LABS: Blood Morphology Comment NOT SEEN (NOT SEEN); Platelet Estimate ADEQ
--- NOTE | 2023-09-24 10:51 | RAD REPORT ---
EXAM DESCRIPTION: CTAbdomen Pelvis W Contrast - 09/24/2023 10:37 am CLINICAL HISTORY: Abdominal pain. ABD PAIN COMPARISON: Abdomen Pelvis W Contrast dated 01/14/2022; Abdomen Pelvis W Contrast dated 01/11/2022; Abdomen Pelvis W Contrast dated 10/11/2021; Abdomen Pelvis W Contrast dated 12/28/2020 TECHNIQUE: Biphasic CT imaging of the abdomen and pelvis was performed with 100 ml non-ionic IV cont rast. All CT scans are performed using dose optimization technique as appropriate and may include automated exposure control or mA/KV adjustment according to patient size. FINDINGS: The lung bases are clear. The liver, spleen, pancreas, adrenal glands and kidneys are within normal limits. No bowel obstruction, free air, free fluid or abscess. There is a significant 9 cm length of sigmoid colon in the left lower quadrant which shows quite advanced wall thickening and surrounding inflammat ion. Several diverticular present in the region. There are several adjacent lymph nodes present. No a bscess. The appendix is normal. No evidence of significant lymphadenopathy. No suspicious bony findings. IMPRESSION: 9 cm length of sigmoid colon in the left lower quadrant show significant inflammation mo st compatible with acute diverticulitis. After appropriate therapy, recommend direct visualization of this region with colonoscopy.
--- NOTE | 2023-09-24 11:18 | ER ---
Nurse's Notes [facility] Name: Leonard Rea Age: 38 yrs Sex: Male : 1985 Arrival Date: 09/24/2023 Time: 09:45 Bed 19 Private MD: Diagnosis: Diverticulitis of large intestine without perforation or abscess without bleeding Presentation: 09/23 09:51 Chief complaint: Patient states: lower abd pain and vomiting since last night. Pt aa5 reports hx of diverticulitis. 09:51 Acuity: CHATA 3 aa5 09:51 Coronavirus screen: vomiting. Ebola Screen: Patient denies travel to an Ebola-affected [facility] area in the 21 days before illness onset. Initial Sepsis Screen: Does the patient meet any 2 criteria? No. Patient's initial sepsis screen is negative. Does the patient have a suspected source of infection? No. Patient's initial sepsis screen is negative. Risk Assessment: Do you want to hurt yourself or someone else? Patient reports no desire to harm self or others. Onset of symptoms was September 2023. 09:51 Method Of Arrival: Ambulatory aa5 Historical: - Allergies: 09:51 No Known Allergies; aa5 - PMHx: 09:51 Anxiety; Asthma; Bipolar disorder; Depression; Diverticulitis; aa5 - PSHx: 09:51 None; aa5 - Immunization history:: Adult Immunizations unknown. - Social history:: Smoking status: Patient denies any tobacco usage or history of. Screenin:40 [facility] ED Fall Risk Assessment (Adult) History of falling in the last 3 months, db including since admission No falls in past 3 months (0 pts) Confusion or Disorientation No (0 pts) Intoxicated or Sedated No (0 pts) Impaired Gait No (0 pts) Mobility Assist Device Used No (0 pt) Altered Elimination No (0 pt) Score/Fall Risk Level 0 - 2 = Low Risk Oriented to surroundings, Maintained a safe environment. Abuse screen: Denies threats or abuse. Denies injuries from another. Nutritional screening: No deficits noted. Tuberculosis screening: No symptoms or risk factors identified. Assessment: 10:40 Reassessment: Patient appears in no apparent distress at this time. Patient and/or db family updated on plan of care and expected duration. Pain level reassessed. Patient is alert, oriented x 3, equal unlabored respirations, skin warm/dry/pink. PATIENT RETURNED TO ROOM FROM CT. General: Appears in no apparent distress. comfortable, Behavior is calm, cooperative. Pain: Complains of pain in abdomen. Neuro: Level of Consciousness is awake, alert, obeys commands, Oriented to person, place, time, situation. Respiratory: Airway is patent Respiratory effort is even, unlabored, Respiratory pattern is regular, symmetrical. GI: Abdomen is flat, non-distended, Bowel sounds present X 4 quads. Abd is soft. 11:47 Reassessment: HOSPITALIST AT PATIENT BEDSIDE. db 13:00 Reassessment: Patient appears in no apparent distress at this time. Patient and/or db family updated on plan of care and expected duration. Pain level reassessed. Patient is alert, oriented x 3, equal unlabored respirations, skin warm/dry/pink. 14:00 Reassessment: Patient appears in no apparent distress at this time. Patient and/or db family updated on plan of care and expected duration. Pain level reassessed. Patient is alert, oriented x 3, equal unlabored respirations, skin warm/dry/pink. SEE [facility] FOR ADMISSION DOCUMENTATION. Vital Signs: 09:51 BP 130 / 91; Pulse 96; Resp 16 S; Temp 98(TE); Pulse Ox 100% on R/A; Weight 102.06 kg aa5 (R); Height 6 ft. 4 in. (R); 11:30 BP 119 / 91; Pulse 98; Resp 18; Pulse Ox 98% on R/A; Pain 6/10; db 12:30 BP 118 / 81; Pulse 63; Resp 18; Pulse Ox 97% on R/A; db 13:30 BP 118 / 73; Pulse 57; Resp 18; Pulse Ox 95% on R/A; db 14:30 BP 103 / 57; Pulse 61; Resp 18; Pulse Ox 97% on R/A; db 09:51 Body Mass Index 27.39 (102.06 kg, 193.04 cm) aa5 11:30 Pain Scale: Adult db ED Course: 09:47 Patient arrived in ED. rg4 09:47 Adarsh Taylor MD is Attending Physician. ec2 09:47 Jai Parekh PA is PHCP. cp 09:52 Arm band placed on. aa5 09:53 Triage completed. aa5 10:17 Lactate w/ 2H reflex if indic. Sent. ds4 10:17 Inserted saline lock: 22 gauge in left antecubital area, using aseptic technique. Blood ds4 collected. 10:17 Initial lab(s) drawn, by me, sent to lab. db 10:21 Ava Bassett, RN is Primary Nurse. db 10:39 CT Abd/Pelvis - IV Contrast Only In Process Unspecified. EDMS 10:50 Patient has correct armband on for positive identification. Bed in low position. Call db light in reach. Side rails up X 1. Pulse ox on. NIBP on. 11:00 First set of blood cultures drawn. db 11:15 Second set of blood cultures drawn by me. db 11:16 Beny Montalvo is Hospitalizing Provider. cp 14:30 Provided Education on: ADMISSION. db 15:50 Urine collected: clean catch specimen, clear. db 18:45 No provider procedures requiring assistance completed. Patient admitted, IV remains in db place. Administered Medications: 10:43 Drug: Ondansetron IVP 4 mg IVP once; over 2 minutes Route: IVP; Site: left antecubital; db 14:11 Follow up: Response: No adverse reaction db 10:44 Drug: NS 0.9% IV 1000 ml IV at 1 bolus Per protocol; 1000 mL bolus Route: IV; Rate: 1 db bolus; Site: left antecubital; 11:35 Follow up: Response: No adverse reaction; IV Status: Completed infusion; IV Intake: db 1000ml 10:44 Drug: Ketorolac IVP 15 mg IVP once Route: IVP; Site: left antecubital; db 12:30 Follow up: Response: No adverse reaction db 11:30 Drug: HYDROmorphone IVP 1 mg IVP once Route: IVP; Site: left antecubital; db 12:55 Follow up: Response: No adverse reaction db 11:32 Drug: Piperacillin-Tazobactam IVPB 3.375 grams IVPB once over 60 mins; (mix in NS 100 db mL) Route: IVPB; Infused Over: 60 mins; Site: left antecubital; 12:05 Follow up: Response: No adverse reaction; IV Status: Completed infusion; IV Intake: db 100ml 12:05 Drug: metroNIDAZOLE IVPB 500 mg 100 ml IVPB once over 30 mins Volume: 100 ml; Route: db IVPB; Infused Over: 30 mins; Site: left antecubital; 12:45 Follow up: Response: No adverse reaction; IV Status: Completed infusion; IV Intake: db 100ml Medication: 10:40 VIS not applicable for this client. db Intake: 11:35 IV: 1000ml; Total: 1000ml. db 12:05 IV: 100ml; Total: 1100ml. db 12:45 IV: 100ml; Total: 1200ml. db Outcome: 11:17 Decision to Hospitalize by Provider. cp 18:45 Admitted to ER Hold. Please see [facility] for further documentation. db 18:45 Condition: stable 18:45 Instructed on the need for admit, 18:45 Patient left the ED. db Signatures: Dispatcher [employer] Irma Thomas, RN RN aa5 Asa Briceno ds4 Jai Parekh PA PA Yeimy Song rg4 Ava Bassett RN RN db Corral, Edwin, MD MD ec2 Corrections: (The following items were deleted from the chart) 11:38 11:30 BP 119 / 91; Pulse 98bpm; Resp 18bpm; Pulse Ox 98% RA; db db 18:45 14:30 Provided Education on: DISCHARGE. db db
--- NOTE | 2023-09-24 11:18 | EDPHYS ---
Physician Documentation [facility] Name: Leonard Rea Age: 38 yrs Sex: Male : 1985 Arrival Date: 09/24/2023 Time: 09:45 Bed 19 Private MD: ED Physician Adarsh Taylor HPI: 09/23 10:00 This 38 yrs old Male presents to ER via Ambulatory with complaints of Abdominal Pain. cp 10:00 The patient presents with abdominal pain in the lower abdomen. cp 10:00 Onset: The symptoms/episode began/occurred yesterday. cp 10:00 Associated signs and symptoms: Pertinent positives: nausea and vomiting, Pertinent cp negatives: chest pain, constipation, diarrhea, dysuria, fever, testicular pain. The symptoms are described as constant. Severity of pain: in the emergency department the pain is unchanged despite home interventions. The patient has experienced similar episodes in the past, multiple times, today's symptoms are similar, to when the patient was apparently diagnosed with diverticulitis. Historical: - Allergies: 09:51 No Known Allergies; aa5 - PMHx: 09:51 Anxiety; Asthma; Bipolar disorder; Depression; Diverticulitis; aa5 - PSHx: 09:51 None; aa5 - Immunization history:: Adult Immunizations unknown. - Social history:: Smoking status: Patient denies any tobacco usage or history of. ROS: 10:05 Constitutional: Negative for body aches, chills, fever, poor PO intake, cp 10:05 Eyes: Negative for injury, pain, redness, and discharge, cp 10:05 ENT: Negative for drainage from ear(s), ear pain, difficulty swallowing, difficulty handling secretions, 10:05 Cardiovascular: Negative for chest pain, edema, palpitations, 10:05 Respiratory: Negative for cough, shortness of breath, wheezing, 10:05 Abdomen/GI: Positive for abdominal pain, nausea and vomiting, Negative for diarrhea, constipation, black/tarry stool, rectal bleeding, 10:05 Neuro: Negative for altered mental status, headache, weakness, 10:05 Back: Negative for pain at rest, pain with movement, cp 10:05 : Negative for urinary symptoms, testicular pain 10:05 All other systems are negative, cp Exam: 10:10 Constitutional: The patient appears in no acute distress, alert, awake, cp non-diaphoretic, non-toxic, well developed, well nourished, uncomfortable, 10:10 Head/Face: Normocephalic, atraumatic. cp 10:10 Eyes: Periorbital structures: appear normal, Conjunctiva: normal, no exudate, no injection, Sclera: no appreciated abnormality, Lids and lashes: appear normal, bilaterally, 10:10 ENT: External ear(s): are unremarkable, Nose: is normal, Mouth: Lips: moist, Oral mucosa: pink and intact, moist, Posterior pharynx: is normal, airway is patent, no erythema, no exudate, 10:10 Chest/axilla: Inspection: normal, 10:10 Cardiovascular: Rate: normal, Rhythm: regular, 10:10 Respiratory: the patient does not display signs of respiratory distress, Respirations: normal, no use of accessory muscles, no retractions, labored breathing, is not present, Breath sounds: are clear throughout, no decreased breath sounds, no stridor, no wheezing, 10:10 Abdomen/GI: Inspection: abdomen appears normal, Bowel sounds: active, all quadrants, Palpation: soft, in all quadrants, moderate abdominal tenderness, in the right lower quadrant and left lower quadrant, rebound tenderness, is not appreciated, involuntary guarding, is not appreciated, 10:10 Back: pain, is absent, ROM is normal, 10:10 Neuro: Orientation: to person, place \T\ time. Mentation: is normal, Motor: moves all fours, strength is normal, Gait: is steady, Vital Signs: 09:51 BP 130 / 91; Pulse 96; Resp 16 S; Temp 98(TE); Pulse Ox 100% on R/A; Weight 102.06 kg aa5 (R); Height 6 ft. 4 in. (R); 11:30 BP 119 / 91; Pulse 98; Resp 18; Pulse Ox 98% on R/A; Pain 6/10; db 12:30 BP 118 / 81; Pulse 63; Resp 18; Pulse Ox 97% on R/A; db 13:30 BP 118 / 73; Pulse 57; Resp 18; Pulse Ox 95% on R/A; db 14:30 BP 103 / 57; Pulse 61; Resp 18; Pulse Ox 97% on R/A; db 09:51 Body Mass Index 27.39 (102.06 kg, 193.04 cm) aa5 11:30 Pain Scale: Adult db MDM: 09:51 Patient medically screened. cp 10:00 Differential diagnosis: appendicitis, bowel obstruction, gastritis, non-specific abd cp pain, pancreatitis, Pyelonephritis, Testicular Torsion, Ureterolithiasis, urinary tract infection. 11:00 Data reviewed: vital signs, nurses notes, lab test result(s), radiologic studies, CT cp scan. 11:10 Consideration of Admission/Observation Patient was admitted/placed on observation. cp Management of patient was discussed with the following: Hospitalist: Aisha Perez NP will admit to services of DR Montalvo. I considered the following discharge prescriptions or medication management in the emergency department Medications were administered in the Emergency Department. See SEP. 09/23 09:57 Order name: CBC with Diff; Complete Time: 10:48 cp 09/23 10:31 Interpretation: Normal except: WBC 18.80; MCV 79.1; MCH 26.6; ELLEN% 75.3; LYM% 15.2; cp NEUT A 14.1; MNA 1.6. 09/23 09:57 Order name: CMP; Complete Time: 10:48 cp 09/23 10:48 Interpretation: Normal except: CL 108; GLUC 110; GFR 88; AST 14; TP 9.0; GLOB 5.5; A/G cp 0.6. 09/23 09:57 Order name: Lipase; Complete Time: 10:48 cp 09/23 09:57 Order name: Urinalysis w/ reflexes cp 09/23 09:57 Order name: Lactate w/ 2H reflex if indic.; Complete Time: 10:48 cp 09/23 10:30 Order name: CBC Smear Scan; Complete Time: 10:48 EDMS 09/23 10:47 Order name: Manual Differential; Complete Time: 10:48 EDMS 09/23 10:49 Interpretation: Normal except: BANDS [F] 4. cp 09/23 10:54 Order name: Blood Culture Adult (2) cp 09/23 12:07 Order name: Basic Metabolic Panel EDMS 09/23 12:07 Order name: Basic Metabolic Panel EDMS 09/23 12:07 Order name: CBC with Automated Diff EDMS 09/23 12:07 Order name: CBC with Automated Diff EDMS 09/23 12:07 Order name: Magnesium EDMS 09/23 12:07 Order name: Magnesium EDMS 09/23 12:07 Order name: Phosphorus EDMS 09/23 12:07 Order name: Phosphorus EDMS 09/23 09:57 Order name: CT Abd/Pelvis - IV Contrast Only; Complete Time: 10:54 cp 09/23 10:55 Interpretation: Report reviewed. cp 09/23 09:57 Order name: IV Saline Lock; Complete Time: 10:17 cp 09/23 09:57 Order name: Labs collected and sent; Complete Time: 10:17 cp 09/23 10:55 Order name: NPO; Complete Time: 11:09 cp Administered Medications: 10:43 Drug: Ondansetron IVP 4 mg IVP once; over 2 minutes Route: IVP; Site: left antecubital; db 14:11 Follow up: Response: No adverse reaction db 10:44 Drug: NS 0.9% IV 1000 ml IV at 1 bolus Per protocol; 1000 mL bolus Route: IV; Rate: 1 db bolus; Site: left antecubital; 11:35 Follow up: Response: No adverse reaction; IV Status: Completed infusion; IV Intake: db 1000ml 10:44 Drug: Ketorolac IVP 15 mg IVP once Route: IVP; Site: left antecubital; db 12:30 Follow up: Response: No adverse reaction db 11:30 Drug: HYDROmorphone IVP 1 mg IVP once Route: IVP; Site: left antecubital; db 12:55 Follow up: Response: No adverse reaction db 11:32 Drug: Piperacillin-Tazobactam IVPB 3.375 grams IVPB once over 60 mins; (mix in NS 100 db mL) Route: IVPB; Infused Over: 60 mins; Site: left antecubital; 12:05 Follow up: Response: No adverse reaction; IV Status: Completed infusion; IV Intake: db 100ml 12:05 Drug: metroNIDAZOLE IVPB 500 mg 100 ml IVPB once over 30 mins Volume: 100 ml; Route: db IVPB; Infused Over: 30 mins; Site: left antecubital; 12:45 Follow up: Response: No adverse reaction; IV Status: Completed infusion; IV Intake: db 100ml Disposition Summary: 09/24/23 11:17 Hospitalization Ordered Notes: Hospitalization Status: Inpatient Admission cp Provider: Beny Montalvo cp Condition: Stable cp Problem: new cp Symptoms: have improved cp Bed/Room Type: Standard cp Location: Telemetry/MedSurg (Inpatient)(09/24/23 16:57) bd Room Assignment: 217(09/24/23 16:57) bd Diagnosis - Diverticulitis of large intestine without perforation or abscess without bleeding cp Forms: - Medication Reconciliation Form cp - SBAR form cp - Leadership Thank You Letter cp Addendum: 09/26/2023 07:58 I was immediately available for consultation during this patient's visit. I did not e c2 personally see the patient or discuss the patient with the MANOLO. . Signatures: Dispatcher [employer] EDMS Deb Beck Audri, RN RN aa5 Jai Parekh PA PA cp Benton, Danielle, RN RN db Adarsh Taylor MD MD ec2 Corrections: (The following items were deleted from the chart) 09/23 16:11 11:17 Telemetry/MedSurg (Inpatient) cp bd 16:11 11:17 cp bd 16:57 16:11 [facility] ER HOLD bd bd 16:57 16:11 ERHOLD- bd bd
[2023-09-24] MEDS ORDERED: HYDROMORPHONE HCL 1 MG/ML INJ ONE (11:23)
[2023-09-24] MEDS ORDERED: METRONIDAZOLE 500mg IVPB 500 MG/100 ML BAG IV ONE (11:23)
[2023-09-24] MEDS ORDERED: PIPERACIL/TAZO 3.375 GM VIAL IV ONE (11:23)
[2023-09-24] MEDS ORDERED: NA CHLORIDE 0.9% 100 ML ONE (11:23)
[2023-09-24] MEDS ORDERED: ONDANSETRON 4 MG/2 ML VIAL IV PRN (11:57)
[2023-09-24] MEDS: PIPER TAZO 3.375 GM in NA CHLORIDE 0.9% 100 ML IV SCH (12:00)
--- NOTE | 2023-09-24 12:23 | P.HP ---
Certification for Inpatient Patient admitted to: Observation With expected LOS: >2 Midnights Patient will require the following post-hospital care: None Practitioner: I am a practitioner with admitting privileges, knowledge of patient current condition, hospital course, and medical plan of care. Services: Services provided to patient in accordance with Admission requirements found in Title 42 Section 412.3 of the Code of Federal Regulations Patient History Date of Service: 09/24/23 Reason for admission: acute diverticulitis History of Present Illness: Leonard Rea is a 38-year-old male with past medical history of Anxiety, Asthma, Bipolar disorder, Depression, Diverticulitis who presents to the ED with chief complaint of lower abdominal pain associated with nausea, vomiting, and diarrhea that started yesterday. He has a history of diverticulitis from 2021 also requiring admission for perforation. All other episodes he has been able to manage at home. Reports smoking marijuana daily, but does not smoke cigarettes or drink alcohol daily. On examination, no abdominal tenderness on palpation, hyperactive bowel sounds present, no acute distress. Initial vitals: BP 130 / 91; Pulse 96; Resp 16; Temp 98; Pulse Ox 100% on R/A Laboratory evaluation significant for WBC 18.8, neutrophils 75.3, BUN/creatinine 10/1.11, GFR 88, lipase 38, lactic acid 0.9. CT abdomen pelvis reports "9 cm length of sigmoid colon in the left lower quadrant show significant inflammation most compatible with acute diverticulitis. After appropriate therapy, recommend direct visualization of this region with colonoscopy." Leonard will be admitted to hospitalist service for further evaluation and treatment of acute diverticulitis. Allergies No Known Allergies Allergy (Verified 01/11/22 22:55) Home Medications: Ciprofloxacin HCl [Cipro 500 MG Tablet] 500 mg PO BID #8 tab 01/14/22 Metronidazole 500 mg PO TID #12 tablet 01/14/22 Ondansetron [Ondansetron Odt] 4 mg PO Q6HP PRN #10 tab.rapdis 01/14/22 - Past Medical/Surgical History Diabetic: No -: Asthma -: Bipolar Disorder -: Depression/Anxiety Psychosocial/ Personal History: patient lives at home with family. - Family History Brother -: Hypertension - Social History Alcohol use: No CD- Drugs: Yes Caffeine use: No Review of Systems Gastrointestinal: Nausea, Vomiting, Abdominal Pain (lower), Constipation Physical Examination - Physical Exam General: Alert, In no apparent distress, Oriented x3 HEENT: Atraumatic, Normocephalic, PERRLA Neck: Supple, 2+ carotid pulse no bruit, JVD not distended Respiratory: Clear to auscultation bilaterally, Normal air movement Cardiovascular: Normal pulses, Regular rate/rhythm, Normal S1 S2 Capillary refill: <2 Seconds Gastrointestinal: Soft and benign, No tenderness, Hyperactive Musculoskeletal: No clubbing, No swelling, No contractures Integumentary: No breakdown, No significant lesion, No tenderness/swelling Neurological: Normal speech, Normal strength at 5/5 x4 extr, Normal tone - Studies Laboratory Data (last 24 hrs) 09/24/23 09/24/23 10:13 10:13 WBC 18.80 H Hgb 13.8 Hct 41.0 Plt Count 331 Sodium 137 Potassium 3.9 BUN 10 Creatinine 1.11 Glucose 110 H Total Bilirubin 0.7 AST 14 L ALT 23 Alkaline Phosphatase 88 Lipase 38 Assessment and Plan - Plan Assessment and plan Acute diverticulitis Leukocytosis Fluid volume deficit due to nausea/vomiting -CT abdomen pelvis reports "9 cm length of sigmoid colon in the left lower quadrant show significant inflammation most compatible with acute diverticulitis. After appropriate therapy, recommend direct visualization of this region with colonoscopy." -Zosyn given in the ED will continue on the floor -IV fluids -N.p.o.-will advance to clear liquid diet in the morning -protonix -Antiemetics -Pain control -Outpatient colonoscopy in 6 months History of anxiety History of asthma History of bipolar disorder History of depression -Restart home medications if appropriate DVT PPx SCDs for now Full code LOS 2-3 days Discharge Plan: Home Plan to discharge in: 48 Hours - Advance Directives Does patient have a Living Will: No Does patient have a Durable POA for Healthcare: No Time Spent Managing Pts Care (In Minutes): 50
[2023-09-24] MEDS: NA CHLORIDE 0.9% 1,000 ML IV SCH (14:00)
[2023-09-24] MEDS: PANTOPRAZOLE 40 MG INJ IVP SCH (15:00)
[2023-09-24] MEDS ORDERED: SODIUM CHLORIDE 0.9% 10ML INJ IV PRN (15:02)
[2023-09-24 15:56] LABS: Sqamous Epithelial None Seen /HPF (None Seen); Urine Bacteria None Seen /HPF (<20); Urine Bilirubin NEGATIVE (Negative); Urine Blood Negative (Negative); Urine Clarity Clear (Clear); Urine Color Light-Yellow (Yellow); Urine Culture Reflex Order NOT NEEDED; Urine Glucose NEGATIVE (Negative); Urine Ketones NEGATIVE (Negative); Urine Microscopic Reflex YN ORDER UMIC; Urine Nitrite NEGATIVE (Negative); Urine Protein TRACE (Negative); Urine RBC <5 /HPF (None Seen); Urine Urobilinogen Normal (Normal); Urine WBC None Seen /HPF (<5)
[2023-09-24 15:57] LABS: Specific Gravity > 1.030 (1.005-1.030)
[2023-09-24] MEDS ORDERED: PIPER TAZO 3.375 GM in NA CHLORIDE 0.9% 100 ML IV SCH (17:00)
[2023-09-24] MEDS ORDERED: METRONIDAZOLE 500mg IVPB 500 MG/100 ML BAG IV SCH (17:00)
[2023-09-24] MEDS ORDERED: PANTOPRAZOLE 40 MG INJ ONE (17:32)
[2023-09-24] MEDS: HYDROMORPHONE HCL 0.5 MG/0.5 ML INJ IV PRN (19:45)
[2023-09-24 19:51] VITALS: BMI 27.6
[2023-09-25] MEDS: KETOROLAC 30 MG/ML INJ IV PRN ×2 (03:21→10:09)
[2023-09-25 03:52] LABS: Absolute Basophils 0.1 K/uL (0-0.5); Absolute Eosinophils 0.1 K/uL (0-0.5); Absolute Lymphocytes (CBC) 2.4 K/uL (0.7-4.9); Absolute Monocytes 1.8 K/uL (0.1-1.3); Absolute Neutrophil 10.6 K/uL (1.8-8.0); Basophils % 0.7 % (0-1.3); Eosinophils % 0.6 % (0-4.4); Hematocrit 36.5 % (39.6-49.0); Hemoglobin 12.1 g/dL (13.6-17.9); MCH 26.5 pg (27.0-35.0); MCHC 33.2 g/dL (32.0-36.0); MPV 8.2 fL (7.6-11.3); Monocytes % 11.9 % (3.3-12.3); Neutrophils % 70.8 % (41.7-73.7); Platelets 325 thou/uL (152-406); RBC Red Blood Cell Count 4.56 M/uL (4.33-5.43); Red Cell Distribution Width 14.2 % (12.1-15.2)
[2023-09-25 04:27] LABS: Anion Gap 9.2 mEq/L (5.0-15.0); Magnesium 2.2 mg/dL (1.6-2.4); Phosphorus 3.2 mg/dL (2.5-4.9); Potassium 4.2 mEq/L (3.5-5.1)
--- NOTE | 2023-09-25 11:43 | P.PN ---
Date of Service: 09/25/23 Subjective: Pain improved overnight Still having moderate pain left lower quadrant, suprapubic area Nausea improved ROS: 10 point ROS as noted above, otherwise negative Physical exam GEN: Alert, oriented, NAD HEENT: Normal conjunctiva, sclera anicteric CV: Regular rate and rhythm, no edema Pulm: Nonlabored respirations on room air ABD: Soft, mild left lower quadrant, suprapubic tenderness MSK: No joint tenderness Integumentary: No rashes Neuro: Normal speech, normal affect Vitals reviewed Problem List Sepsis secondary to acute diverticulitis POA Leukocytosis Nausea/vomiting Anxiety Asthma Bipolar disorder Depression Plan Sepsis secondary to acute diverticulitis POA Nausea/vomiting Leukocytosis is downtrending, moderate improvement in pain Continue IV antibiotics, as needed pain medications and antiemetics Advance diet to clear liquids today Anxiety Asthma Bipolar disorder Depression Continue home medications VTE: Lovenox Code: Full Dispo: 48 to 72 hours Time Spent Managing Pts Care (In Minutes): 35
[2023-09-25 23:21] VITALS: O2SAT 97
[2023-09-26 03:46] LABS: Hemoglobin 11.5 g/dL (13.6-17.9); MCH 26.8 pg (27.0-35.0); MCHC 33.9 g/dL (32.0-36.0); MPV 8.3 fL (7.6-11.3); Platelets 315 thou/uL (152-406)
[2023-09-26 04:02] LABS: Anion Gap 9.8 mEq/L (5.0-15.0); Potassium 3.8 mEq/L (3.5-5.1)
[2023-09-26] MEDS: ENOXAPARIN 40 MG/0.4 ML SQ SCH (08:50)
[2023-09-26] MEDS: POTASSIUM 25 MEQ EFFERV TAB PO ONE (08:50)
[2023-09-26] MEDS: NA CHLORIDE 0.9% 1,000 ML IV SCH (11:18)
--- NOTE | 2023-09-26 11:18 | P.PN ---
Date of Service: 09/26/23 Subjective: Pain improved overnight Still having moderate pain left lower quadrant, suprapubic area Pain worse when bladder is full/while urinating ROS: 10 point ROS as noted above, otherwise negative Physical exam GEN: Alert, oriented, NAD HEENT: Normal conjunctiva, sclera anicteric CV: Regular rate and rhythm, no edema Pulm: Nonlabored respirations on room air ABD: Soft, mild left lower quadrant, suprapubic tenderness MSK: No joint tenderness Integumentary: No rashes Neuro: Normal speech, normal affect Vitals reviewed Problem List Sepsis secondary to acute diverticulitis POA Leukocytosis Nausea/vomiting Anxiety Asthma Bipolar disorder Depression Plan Sepsis secondary to acute diverticulitis POA Nausea/vomiting Leukocytosis is downtrending, moderate improvement in pain Continue IV antibiotics, as needed pain medications and antiemetics Continue clear liquids for now Last BM 09/22. + flatus Anxiety Asthma Bipolar disorder Depression Continue home medications VTE: Lovenox Code: Full Dispo: 48 to 72 hours Time Spent Managing Pts Care (In Minutes): 35
[2023-09-27 03:55] LABS: Hematocrit 36.7 % (39.6-49.0); Hemoglobin 12.4 g/dL (13.6-17.9); MCH 26.5 pg (27.0-35.0); MCHC 33.8 g/dL (32.0-36.0); MCV 78.3 fL (80-100); MPV 8.1 fL (7.6-11.3); Platelets 362 thou/uL (152-406); RBC Red Blood Cell Count 4.68 M/uL (4.33-5.43); Red Cell Distribution Width 13.9 % (12.1-15.2)
[2023-09-27 04:08] LABS: Anion Gap 9.6 mEq/L (5.0-15.0); Potassium 3.6 mEq/L (3.5-5.1)
[2023-09-27] MEDS: POTASSIUM CL SA 10 MEQ TAB PO ONE (08:10)
[2023-09-27] MEDS: ACETAMINOPHEN 325 MG TABLET PO PRN (08:31)
--- NOTE | 2023-09-27 13:18 | P.PN ---
Date of Service: 09/27/23 Subjective: Pain waxing/waning-overall improving Still having moderate pain left lower quadrant, suprapubic area Less pain when needing to urinate ROS: 10 point ROS as noted above, otherwise negative Physical exam GEN: Alert, oriented, NAD HEENT: Normal conjunctiva, sclera anicteric CV: Regular rate and rhythm, no edema Pulm: Nonlabored respirations on room air ABD: Soft, mild left lower quadrant, suprapubic tenderness MSK: No joint tenderness Integumentary: No rashes Neuro: Normal speech, normal affect Vitals reviewed Problem List Sepsis secondary to acute diverticulitis POA Nausea/vomiting Anxiety Asthma Bipolar disorder Depression Plan Sepsis secondary to acute diverticulitis POA Nausea/vomiting Leukocytosis is downtrending, moderate improvement in pain Continue IV antibiotics, as needed pain medications and antiemetics Advanced to full liquids 09/26 lunch Last BM 09/22. + flatus Anxiety Asthma Bipolar disorder Depression Continue home medications VTE: Lovenox Code: Full Dispo: 48 to 72 hours Time Spent Managing Pts Care (In Minutes): 35
[2023-09-27] MEDS ORDERED: HYDROCODONE/APAP 5/325 MG TAB PO PRN (14:08)
[2023-09-27] MEDS ORDERED: HYDROMORPHONE HCL 0.5 MG/0.5 ML INJ IV PRN (14:08)
[2023-09-28 04:55] LABS: Hemoglobin 12.3 g/dL (13.6-17.9); MCH 26.7 pg (27.0-35.0); MCHC 34.1 g/dL (32.0-36.0); MCV 78.2 fL (80-100); MPV 7.9 fL (7.6-11.3); Platelets 397 thou/uL (152-406); Red Cell Distribution Width 13.8 % (12.1-15.2)
[2023-09-28 05:22] LABS: Anion Gap 8.9 mEq/L (5.0-15.0); Potassium 3.9 mEq/L (3.5-5.1)
[2023-09-28 08:07] VITALS: BP 121/77; TEMP 97
--- NOTE | 2023-09-28 12:27 | P.DS ---
Admission Date: 09/25/23 Discharge Date: 09/28/23 Disposition: ROUTINE DISCHARGE Discharge Condition: GOOD Reason for Admission: acute diverticulitis Brief History of Present Illness: Leonard Rea is a 38-year-old male with past medical history of Anxiety, Asthma, Bipolar disorder, Depression, Diverticulitis who presents to the ED with chief complaint of lower abdominal pain associated with nausea, vomiting, and diarrhea that started 1 day prior to arrival. CT abdomen pelvis reports "9 cm length of sigmoid colon in the left lower quadrant show significant inflammation most compatible with acute diverticulitis. After appropriate therapy, recommend direct visualization of this region with colonoscopy." Patient was admitted for further management of diverticulitis Hospital Course: Problem List Sepsis secondary to acute diverticulitis POA Nausea/vomiting Anxiety Asthma Bipolar disorder Depression Patient was admitted to the hospital for acute diverticulitis, he was having significant left lower quadrant, suprapubic pain and his white blood cell count was elevated to 18.8 on admission. He has had a previous episode of diverticulitis with microperforation, there was no perforation noted during this episode. He was treated with IV antibioticsZosyn and had steady improvement, his white blood cell count has trended down and is 11.6 today at discharge. He has been tolerating a full liquid diet and had 2 bowel movements overnight. He has not required pain medication for the last 12 hours or so. He is stable for discharge at this time. Dietitian also saw patient and recommended to avoid high fiber foods such as raw fruits/vegetables, whole grains, and nuts/seeds for the next 4-6 weeks and then gradually increase fiber intake as tolerated to goal of 25-30 grams/day and consider a probiotic. We also discussed the importance of a colonoscopy in 6 to 8 weeks after this acute infectious. To rule out malignancy or other causes of recurrent diverticulitis. Continue home medications as prescribed New medications: Augmentin 875 mg by mouth twice daily for 7 days Tylenol #3 as needed for pain Please follow-up your primary care doctor 1 to 2 weeks Please follow-up with GI doctor to have planned colonoscopy in 6 to 8 weeks Vital Signs/Physical Exam: Temp Pulse Resp BP Pulse Ox 97.0 F 74 18 121/77 98 09/28/23 07:45 09/28/23 07:45 09/28/23 07:45 09/28/23 07:45 09/28/23 07:45 General: Alert, In no apparent distress, Oriented x3 HEENT: Atraumatic, PERRLA Neck: Supple, JVD not distended Respiratory: Clear to auscultation bilaterally, Normal air movement Cardiovascular: Regular rate/rhythm, Normal S1 S2 Gastrointestinal: Normal bowel sounds, No tenderness Musculoskeletal: No tenderness Integumentary: No rashes Neurological: Normal speech, Normal tone, Normal affect Laboratory Data at Discharge: WBC 11.60 thou/uL (4.3-10.9) H 09/28/23 04:30 Hgb 12.3 g/dL (13.6-17.9) L 09/28/23 04:30 Hct 36.0 % (39.6-49.0) L 09/28/23 04:30 Plt Count 397 thou/uL (152-406) 09/28/23 04:30 Sodium 138 mEq/L (136-145) 09/28/23 04:14 Potassium 3.9 mEq/L (3.5-5.1) 09/28/23 04:14 BUN 7 mg/dL (7-18) 09/28/23 04:14 Creatinine 1.01 mg/dL (0.70-1.30) 09/28/23 04:14 Glucose 100 mg/dL (74-106) 09/28/23 04:14 Phosphorus 3.2 mg/dL (2.5-4.9) 09/25/23 03:09 Magnesium 2.2 mg/dL (1.6-2.4) 09/25/23 03:09 Total Bilirubin 0.7 mg/dL (0.2-1.0) 09/24/23 10:13 AST 14 U/L (15-37) L 09/24/23 10:13 ALT 23 U/L (16-61) 09/24/23 10:13 Alkaline Phosphatase 88 U/L (45-117) 09/24/23 10:13 Lipase 38 U/L (13-75) 09/24/23 10:13 Home Medications: Levocetirizine Dihydrochloride [Xyzal] 5 mg PO DAILY 09/24/23 Amox/Clavulanate [Augmentin 875-125 Tab] 875 mg PO BID 7 Days #14 tab 09/28/23 Codeine/APAP [Tylenol W/Codeine #3 tab] 1 tab PO Q6HP PRN #5 tab 09/28/23 New Medications: Amox/Clavulanate [Augmentin 875-125 Tab] 875 mg PO BID 7 Days #14 tab Codeine/APAP [Tylenol W/Codeine #3 tab] 1 tab PO Q6HP PRN #5 tab PRN Reason: Pain Physician Discharge Instructions: Physician discharge instructions Patient was admitted to the hospital for acute diverticulitis, he was having significant left lower quadrant, suprapubic pain and his white blood cell count was elevated to 18.8 on admission. He has had a previous episode of diverticulitis with microperforation, there was no perforation noted during this episode. He was treated with IV antibioticsZosyn and had steady improvement, his white blood cell count has trended down and is 11.6 today at discharge. He has been tolerating a full liquid diet and had 2 bowel movements overnight. He has not required pain medication for the last 12 hours or so. He is stable for discharge at this time. Dietitian also saw patient and recommended to avoid high fiber foods such as raw fruits/vegetables, whole grains, and nuts/seeds for the next 4-6 weeks and then gradually increase fiber intake as tolerated to goal of 25-30 grams/day and consider a probiotic. We also discussed the importance of a colonoscopy in 6 to 8 weeks after this acute infectious. To rule out malignancy or other causes of recurrent diverticulitis. Continue home medications as prescribed New medications: Augmentin 875 mg by mouth twice daily for 7 days Tylenol #3 as needed for pain Please follow-up your primary care doctor 1 to 2 weeks Please follow-up with GI doctor to have planned colonoscopy in 6 to 8 weeks Diet: low fiber Activity: Ad juan Followup: NONE,NONE [Primary Care Provider] - 1-2 Weeks Hipolito Sparks MD [OUTSIDE PHYSICIAN] - Time spent managing pt's care (in minutes): 30
== END 2023-09-28 09:31 | disposition home or self-care (01) | DRG 872 ==
LOC: ER 09:45 → ERHOLD 11:57 → 2ND 17:08 → OBSVTOIN 09-25 09:08
PROVIDERS: ADMIT Internal Medicine; ATTEND Hospitalist
DX: A41.9 Sepsis, unspecified organism (principal); K57.32 Diverticulitis of large intestine without perforation or abscess without bleeding; K59.00 Constipation, unspecified; F41.9 Anxiety disorder, unspecified; J45.909 Unspecified asthma, uncomplicated; F31.9 Bipolar disorder, unspecified; Z79.899 Other long term (current) drug therapy
CPT/HCPCS: 36415; 74177; 80048; 80053; 81001; 83605; 83690; 83735; 84100; 85025; 85027; 87040; 96361; 96365; 96367; 96375; 99285; C9113; G0378; J1170; J1650; J2405; J2543; J7030; Q9967

== ENCOUNTER 2024-12-04 22:56 | Emergency (ER) | payer SELFPAY ==
--- OUTSIDE RECORDS SUMMARY | 2024-12-04 22:59 | XMS REPORT | Continuity of Care Document ---
Author Name Unknown Address [address] [facility] [address] [place] [address] [facility] Address [address] [facility] [address] [place] [address] Care Team Providers Care Guest House Manager Name Role Phone SuzetteCheryl Grady Attending Clinician CHRISTIANA Chase Attending Clinician CHRISTIANA Chase Attending Clinician Tarik eugene 1, [facility] Attending Clinician Christiana Garcia MD Attending Clinician Doctor Unassigned, [place] Attending Clinician U navailable Only, [facility] Test Attending Clinician Rudi Hodge MD Attending Clinician Physician, No Primary or Family Admitting Clinic landon Unavailable Payers Payer Name Policy Type Policy Number Effective Date Expirati on Date Source [employer] [id number] 2019 00:00:00 Problems Condition Name Condition Details Condition Category Status Onset Date Resolution Date Last Treatment Date Treating Clinician Comments Source Encounter for fertility planning Encounter for fertility planning Diagnosis Active [facility] Allergies, Adverse Reactions, Alerts Allergy Name Allergy Type Status Severity Reaction(s) Onset Date Inactive Date Treating Clinician Comments Source No Known Allergie s DA Active U 12-25 00:00: 00 [facility] [place] NO KNOWN ALLERGIE S Drug Class Active [facility] Social History Social Habit Start Date Stop Date Quantity Comments Source Sex Assigned At [facility] Exposure to SARS-CoV-2 (event) Not sure [facility] Smoking Status Start Date Stop Date Source Unknown if ever smoked [facility] Medications Ordered Medication Name Filled Medication Name Start Date Stop Date Current Medication? Ordering Clinician Indication Dosage Frequency Signature (SIG) Comments Components Source Noe Basic Noe Basic Yes Codie [place] not defined [facility] Nexium Nexium Yes Codie [place] 1 capsule [facility] Divalproex Sodium Divalproex Sodium Yes Codie Ricky 1 tablet [facility] Calm Plus Calm Plus Yes Codie Ricky as directed [facility] Fish Oil Fish Oil Yes Codie [place] 1 capsule [facility] Xyzal Xyzal Yes [place] not defined [facility] Escitalopra m Oxalate Escitalopra m Oxalate Yes Codie [place] 1 tablet [facility] Procedures Procedure Date / Time Performed Performing Clinicia n Source SLEEP STUDY DATA REPORT 2020-03-02 05:01:00 Doctor Unassigned, [place] [facility] ASSIGNMENT OF BENEFITS 2020-02-10 16:28:21 Docto r Unassigned, [place] [facility] Encounters Start Date/Time End Date/Time Encounter Type Admission Type Attending [facility] Care Department Encounter ID Source 2021-08-10 11:03:53 Outpatient [facility] [id number] [facility] 2022-12-25 08:44:00 2022-12-25 12:58:00 Emergency EM Cheryl Bradford [facility] STEFFEN [id number] [facility] are [place]i [place] 2020-03-02 20:00:00 2020-03-02 20:00:00 Outpatient CHRISTIANA KEBEDE STRAHIL [facility] [id number] [facility] 2020-03-02 13:30:04 2020-03-02 16:00:04 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 Hydraulic Visit 1, [facility] [place] Christiana King [facility] 1.2.840.114 350.1.13.10 4.2.7.2.686 [id number] [facility] 2020-03-02 13:30:04 2020-03-02 16:00:04 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 Hydraulic Visit 1, [facility] 1.2.840.114 350.1.13.10 4.2.7.2.686 [id number] 2020-03-02 00:00:00 2020-03-02 00:00:00 Orders Only Doctor Unassigned, [place] [facility] 1.2.840.114 350.1.13.10 4.2.7.2.686 [id number] [facility] 2020-03-02 00:00:00 2020-03-02 00:00:00 Orders Only Doctor Unassigned, [place] [facility] 1.2.840.114 350.1.13.10 4.2.7.2.686 [id number] 2020-02-27 10:53:49 2020-02-27 11:08:49 Laboratory Only Only, [facility] Test [facility] 1.2.840.114 350.1.13.10 4.2.7.2.686 [id number] 2020-02-27 10:53:49 2020-02-27 11:08:49 Laboratory Only Only, [facility] Test Rudi Mullins [facility] 1.2.840.114 350.1.13.10 4.2.7.2.686 [id number] [facility] 2020-02-27 11:00:00 2020-02-27 11:00:00 Outpatient R [facility] [id number] [facility] 2020-02-12 20:00:00 2020-02-12 20:00:00 Outpatient R CHRISTIANA CHOWDHURY, CHRISTIANA [facility] [id number] [facility] 2020-02-12 14:19:31 2020-02-12 16:49:31 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 Hydraulic Visit 1, [facility] 1.2.840.114 350.1.13.10 4.2.7.2.686 [id number] 2020-02-12 14:19:31 2020-02-12 16:49:31 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 Hydraulic Visit 1, [facility] Christiana Chowdhury [facility] 1.2.840.114 350.1.13.10 4.2.7.2.686 [id number] [facility] 2020-02-10 11:27:44 2020-02-10 11:42:44 Laboratory Only Only, [facility] Test [facility] 1.2.840.114 350.1.13.10 4.2.7.2.686 [id number] 2020-02-10 11:27:44 2020-02-10 11:42:44 Laboratory Only Only, [facility] Test Christiana Cohwdhury [facility] 1.2.840.114 350.1.13.10 4.2.7.2.686 [id number] [facility] 2020-02-10 11:15:00 2020-02-10 11:15:00 Outpatient R CHRISTIANA CHOWDHURY STRAHIL [facility] [id number] [facility] 2020-02-10 00:00:00 2020-02-10 00:00:00 Orders Only Doctor Unassigned, [place] [facility] 1.2.840.114 350.1.13.10 4.2.7.2.686 [id number] 2020-02-10 00:00:00 2020-02-10 00:00:00 Orders Only Doctor Unassigned, [place] [facility] 1.2.840.114 350.1.13.10 4.2.7.2.686 [id number] [facility] 2019-08-12 16:00:00 2019-08-12 16:00:00 [facility] [id number] [facility] Results Test Description Test Time Test Comments Results Result Co mments Source Indication for culture: RiskForSepsis-no oth srcSpecimen Description: CLEAN CATCH- CT ABD PELVIS W/[id number] 11:16:00 [facility] : 1985 Sex: MPatient Name: CATRINA ANDREWS Unit No: [id number] EXAMS: CPT CODE: [id number] CT ABD PELVIS W/CONT 81542 EXAMINATION: - CT ABD PELVIS W/CONT COMPARISON: None HISTORY: Abdominal pain LOCATION CODE: C3 TECHNIQUE: CT of the Abdomen and Pelvis with intravenous contrast. Oral contrast was not administered. Axial contrast enhanced images of the abdomen and pelvis were obtained and reviewed in soft t issue, bone and lung windows. Coronal and sagittal reconstructed images were also provided for review. All CT scans are performed using dose optimization techniques as appropriate to a performed examincluding one or more of the following: ?Automated exposure control ?Adjustment of the mA and/or kVaccording to patient size ?Use of iterative reconstruction [...] normal and the lung bases are clear. 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 FINDINGS PELVIS: The urinary bladder, prostate and seminal vesicles arenormal. There is no free air, free fluid or lymphadenopathy. There is thickening of the morgan of the mid sigmoid colon without significant associated inflammatory change. Further evaluation with colonoscopy is recommended. The more distal sigmoid colon rectum are normal in appearance. The vessels are unremarkable. 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 IMPRESSION: Minimal prominence of the left ureter, most likely secondary to a tiny stone at the left UVJ Focal thickening of the mid sigmoidcolon without evidence of significant inflammatory change. Whether the findings are related to a process such as inflammatory bowel disease is unclear (patient with partially fused sacroiliac joints). Dedicated colonoscopy is recommended Name: CATRINA ANDREWS [facility] Phys: Lux Ruth [address] : 1985 Age: 37 [place]: [place] [phone] Loc: [place].ERS Exam Date: 12/25/2022 Status: REG ER PH: FAX: PAGE 1 Signed Report (CONTINUED) Patient Name: CATRINA ANDREWS Unit No: [id number] EXAMS: CPT CODE: [id number] CT ABD PELVIS W/CONT 14032 (Continued) at 1116 Reported and signed by: Melisa Navarro MD CC: Lux Elias MD; Cheryl Bradford MD Technologist: Everton Sylvester CTDI: 8.72 DLP: 542.68 Trscr Dt/Tm: 12/25/2022 (1116) by:[email or web address] Electronic Signature Date/Time: 12/25/2022 (1116)Orig Print D/T: S: 12/25/2022 (1120) Name: CATRINA ANDREWS [facility] Phys: Lux Ruth [address] : 1985 Age: 37 Sex: [place] [id number] Loc: [place].ERS Exam Date: 12/25/2022 Status: REG ER PH: FAX: PAGE 2 Signed ReportBASIC METABOLIC [id number] 09:53:00* Test Item Value Reference Range Interpretation [...] CA) 9.6 mg/dL 8.5-10.1 N LIVER FUNCTION [id number] 09:53:00* Test Item Value Reference Range Interpretation [...] code = ALKP) 93 U/L 45-117 N [id number] 09:53:00* Test Item Value Reference Range Interpretation Comme nts LIPASE (test code = LIP) 173 U/L 73-393 N PROTHROMBIN [id number] 09:44:00* Test Item Value Reference Range Interpretation Comme [facility] PROTHROMBIN TIME PATIENT (test code = PTP) [...] heart values and/or recurrent systemicembolization. THROMBOPLASTIN TIME [id number] 09:44:00* Test Item Value Reference Range Interpretation Comme [facility] THROMBOPLASTIN TIME PARTIAL (test code = PTT) 32.2 SECONDS 25.1-36.5 N CBC W/AUTO [id number] 09:35:00* Test Item Value Reference Range Interpretation [...] Notes Date/Time Note Provider Source 2022-12-25 10:13:00 [id number] [place] [id number] [facility] [address] PATIENT NAME: CATRINA ANDREWS ADMIT DATE: 12/25/22 ACCOUNT NO: [id number] ROOM NO: AGE: 37 REPORT TYPE: eELECTROCARDIOGRAM SEX: M ADMITTING PHYSICIAN: ATTENDING PHYSICIAN: Order: [id number] Test Reason : Test Date/Time Stamp: SunDec 25 2022 10:13:20 Blood Pressure : / mmHG Vent. Rate : 102 BPM Atrial Rate : 173 BPM P-R Int : 135 ms QRS Dur : 105 ms QT Int : 371 ms P-R-T Axes : 238 030 057 degrees QTc Int : 484 ms Atrial flutter with predominant 3:[address] elevation, inferior leads Borderline prolonged QT interval Poor R wave progression Abnormal ECG Confirmed by MD April, Adam ([id number]) on 12/25/2022 8:12:48 PM Referred By: Cheryl Bradford Confirmed by:Adam Chen MD at 2011 [facility] [address] [facility] [address] PATIENT NAME: CATRINA ANDREWS [facility] 2022-12-25 09:10:00 [facility] ([facility] EMERGENCY PROVIDER REPORT REPORT#:[id number] REPORT STATUS: Signed DATE:12/25/22 TIME: 909 PATIENT: CATRINA ANDREWS UNIT #: [id number] ROOM: BED: AGE: 37 SEX: M PCP PHYS: No Primary or Family Physician SERVICE AUTHOR: Lux Elias MD R3 * ALL edits or amendments must be made on the electronic/computer document * Lux Elias 12/25/22 0910: HPI-General Illness General Initial Greet Date/Time 12/25/22 0853 Presentation Chief Complaint Flank pain Free Text HPI Notes Free Text HPI Notes 37 male past medical history of diverticulosis comes emergency department for abdominal flank pain. Patient had a left flank and abdominal pain. Symptoms for 24 hours. Patient endorsed blood per rectum. Has had vomiting. No fevers chills. Review of Systems ROS Statements All systems rev neg except as marked. Complete sys rev neg except as marked. Free Text ROS Notes Free Text ROS Notes Endorse: Abdominal pain, flank pain Denies fever chills nausea vomiting Past Medical History - Adult Stated Complaint RIGHT FLANK BACK PAIN Allergies Coded Allergies: No Known Allergies (12/25/22) Pt reports no significant: Past surgical history Additional Medical History Diverticulosis Physical Exam Vital Signs Vital Signs First Documented: Result Date Time Pulse Ox 100 12/25 0845 B/P 138/93 / 0845 B/P Mean 108 12/25 0845 O2 Delivery Room air 12/25 0845 Temp 37.1 12/25 0845 Pulse 60 12/25 0845 Resp 16 12/26 0745 Last Documented: Result Date Time Pulse Ox 99 12/25 1236 B/P 123/84 12/25 1231 B/P Mean 99 12/25 1231 Pulse 61 12/25 1231 O2 Delivery Room air 12/25 0845 Temp 37.1 12/25 0845 Resp 16 12/26 0745 Review of Vital Signs Reviewed Physical Exam General/Const General/Const Awake, Alert Distress/Hydration Distress mild. Eyes Eyes PERRL, EOMI Ears/Nose/Throat Ears/Nose/Throat Airway patent, Mucous membranes moist MS Neck Neck Supple, No meningismus Resp/Chest Respiratory/Chest Breath sounds NL, Breath sounds = bilat, No respiratory distress Cardiovascular Cardiovascular Heart rate NL, Heart sounds NL, Cap refill not delayed, Peripheral circulation NL Abdomen/GI Abdomen/GI Soft, Non-tender, No guarding, No distention MS Back Back No CVA tenderness Skin Skin Warm, Dry Rectum Text/Dict Notes External hemorrhoid noted, no gross blood per rectum Neurologic Neurologic Oriented X3, Speech NL, No motor deficits Interpretation Diagnostics Lab Results Interpretation Results Laboratory Tests 12/25/22910: [Embedded Image Not Available] Laboratory Tests: 12/25 910 Chemistry Sodium (135 - [...] % (Auto) (14.0 - 56.4 %) 28.6 Pierce % (Auto) (0.0 - 12.9 %) 8.6 Eos % (Auto) (0.0 - 7.0 %) 1.4 Baso % (Auto) (0 - 2.0 %) 0.5 Neut # (Auto) (1.5 - 7.0 10 3/uL) 7.54 H Lymph # (Auto) (1.50 - 4.00 10 3/uL) 3.56 Pierce # (Auto) (0.20 - 0.80 10 3/uL) [...] pH (5.0 - 8.0) 6.0 Ur Specific [place] (1.005 - 1.025) 1.014 Urine Protein (NEGATIVE) [...] /HPF) RARE Urine Mucus (/lpf) MODERATE Recent Impressions: CAT SCAN - CT ABD PELVIS W/CONT 12/25 1050 Report Impression - Status: SIGNED Entered: 12/25/2022 1120 IMPRESSION: Minimal prominence of the left ureter, most likely secondary to a tiny stone at the left UVJ Focal thickening of the mid sigmoid colon without evidence of significant inflammatory change. Whether the findings are related to a process such as inflammatory bowel disease is unclear (patient with partially fused sacroiliac joints). Dedicated colonoscopy is recommended Impression By: Melisa Clark MD ECG #1 Interpretation Text/Dict Note Normal sinus rhythm Normal axis No STEMI Date 12/25/22 Time 09 Interpreted by and reviewed by me Re-Evaluation MDM Free Text MDM Notes Additional Text MDM discharge: Differential diagnosis include Diverticulitis Hemorrhoids Diverticulosis Nephrolithiasis Renal colic Patient comes to the emergency department for flank abdominal pain. Patient's abdominal exam overall reassuring. Mild wall thickening of intestines noted on imaging could be from diverticulitis flare from patient's baseline diverticulosis. Patient's blood per stool likely from external hemorrhoid noted on exam. Patient's flank pain has historical character distribution consistent with nephrolithiasis. Patient educated on symptomatic care for renal colic. No evidence of large hydronephrosis or hydroureter indicating obstructing stone based off of imaging. Patient discharged home with education on symptomatic control and return precautions to ED. The patient likely has Acute renal colic . Decision regarding hospitalization/ admission/transfer/discharge was considered and discharge was decided upon after reviewing risks/benefits/alternatives. Decision regarding discharge was made due to the low risk of morbidity because of reassuring labs imaging exam. Patient discharged home with prescription for symptomatic relief. Education to follow-up with PCP and given strict return precautions to the ED. ED Course Medication(s) Ordered Medication(s) Ordered: Central Nervous System Agents Sig/Janice Start time Last Medication Dose Route Stop Time Status Admin Morphine Sulfate 4 MG X1ED STA 12/25 0905 DC 12/25 IV 12/25 0906 0918 Diagnostic Agents Sig/Janice Start time Last Medication Dose Route Stop Time Status Admin Iopamidol 0 .STK-MED ONE 12/25 1045 DC .ROUTE Electrolytic, Caloric, And Elver Sig/Janice Start time Last Medication Dose Route Stop Time Status Admin Sodium Chloride 1,000 ML X1ED STA 12/25 0905 DC / IV 12/25 1004 0917 Gastrointestinal Drugs Sig/Janice Start time Last Medication Dose Route Stop Time Status Admin Ondansetron HCl 4 MG X1ED PRN PRN 12/25 0915 DCD 12/25 IV 01/24 0916 0918 Patient Discharge Departure Vital Signs/Condition Vital Signs First Documented: Result Date Time Pulse Ox 100 12/25 0845 B/P 138/93 / 0845 B/P Mean 108 12/25 0845 O2 Delivery Room air 12/25 0845 Temp 37.1 12/25 0845 Pulse 60 / 0845 Resp 16 12/25 0845 Last Documented: Result Date Time Pulse Ox 99 / 1236 B/P 123/84 / 1231 B/P Mean 99 / 1231 Pulse 61 / 1231 O2 Delivery Room air 12/25 0845 Temp 37.1 12/25 0845 Resp 16 12/25 0845 All vital signs available at the time of this entry have been reviewed. Clinical Impression Clinical Impression Primary Impression: Renal colic Secondary Impressions: Abdominal pain, Acute hemorrhoid Disposition Decision Discharge )( Discharged to Home Yes )( Time 1250 )( Date 12/25/22 Discharge/Care Plan Counseled Regarding Diagnosis, Lab results, Imaging studies, Prescriptions, Need for follow-up, When to return to ED (Auto) Prescriptions Current Visit Scripts Ketorolac (Toradol) 10 MG PO Q6H PRN PRN PAIN 5 Days #20 TABS Patient Instructions ED Kidney Stone with Pain Additional Instructions Please return to the emergency department if your conditions worsens. If you have any uncontrollable fever, chest pain, nausea, vomiting, dizziness or vision changes please return to the emergency department. Please follow-up with your primary care physician in regards to your visit today. Thank you for choosing [facility]. Discharge Note I have spoken with the patient and/or caregivers. I have explained the patient's condition, diagnoses and treatment plan based on the information available to me at this time. I have answered the patient's and/or caregiver's questions and addressed any concerns. The patient and/or caregivers have as good an understanding of the patient's diagnosis, condition and treatment plan as can be expected at this point. The vital signs have been stable. The patient's condition is stable and appropriate for discharge from the emergency department. The patient will pursue further outpatient evaluation with the primary care physician or other designated or consulting physician as outlined in the discharge instructions. The patient and/or caregivers are agreeable to this plan of care and follow-up instructions have been explained [...] a call to 911. Cheryl Bradford 12/26/22 1511: Patient Discharge Departure Supervising Physician Note Resident Saw Pt This patient was seen by a resident. I have personally seen the patient, performed the critical or nails portions of the service, and participated in the management of the patient. I have reviewed the resident's note, and I have reviewed all labs, ECGs, and imaging studies or reports. Portions of my exam and documentation are included in this note. at 1442 at 1514 RPT #:[id number] END OF REPORT [facility]
--- NOTE | 2024-12-05 00:26 | EDPHYS ---
Physician Documentation [facility] Name: Leonard Rea Age: 39 yrs Sex: Male : 1985 Arrival Date: 12/04/2024 Time: 22:56 Bed 5 Private MD: ED Physician Jose A Jones HPI: 12/05 04:42 This 39 yrs old Male presents to ER via Ambulatory with complaints of Allergic rt Reaction, Eye Swelling. 04:42 Patient presents to the ED with swelling, itching to the left eye that has been present rt for about 1 week. The patient reports having the symptoms previously with allergy, denies pain, blurry vision, acute complaints, symptoms are mild in severity, no other aggravating or alleviating factors.. Historical: - Allergies: 12/04 23:40 No Known Allergies; jb4 - PMHx: 23:40 Anxiety; Depression; Bipolar disorder; Asthma; Diverticulitis; jb4 - PSHx: 23:40 None; jb4 - Immunization history:: Adult Immunizations up to date. - Infectious Disease History:: Denies. - Social history:: Smoking status: Patient denies any tobacco usage or history of. Patient uses street drugs, marijuana. - Family history:: not pertinent. ROS: 12/05 04:42 Constitutional: Negative for fever, chills, and weight loss, Cardiovascular: Negative rt for chest pain, palpitations, and edema, Respiratory: Negative for shortness of breath, cough, wheezing, and pleuritic chest pain, Abdomen/GI: Negative for abdominal pain, nausea, vomiting, diarrhea, and constipation, ENT: Positive for Swelling, itchy, Exam: 04:42 Constitutional: This is a well developed, well nourished patient who is awake, alert, rt and in no acute distress. Chest/axilla: Normal chest wall appearance and motion. Nontender with no deformity. No lesions are appreciated. Cardiovascular: Regular rate and rhythm with a normal S1 and S2. No gallops, murmurs, or rubs. Normal PMI, no JVD. No pulse deficits. Respiratory: Lungs have equal breath sounds bilaterally, clear to auscultation and percussion. No rales, rhonchi or wheezes noted. No increased work of breathing, no retractions or nasal flaring. Abdomen/GI: Soft, non-tender, with normal bowel sounds. No distension or tympany. No guarding or rebound. No evidence of tenderness throughout. 04:42 Eyes: Swollen conjunctiva, allergic shriner noted. Vital Signs: 12/04 23:37 BP 145 / 92; Pulse 89; Resp 16; Temp 97.6(TE); Pulse Ox 99% on R/A; Weight 102.06 kg; jb4 Height 6 ft. 3 in. ; 23:37 Body Mass Index 28.12 (102.06 kg, 190.5 cm) jb4 MDM: 12/05 00:20 Medical Screening Exam initiated rt 04:42 Differential diagnosis: Allergic conjunctivitis. Test considered but Not performed: rt Other Details Afebrile, do not suspect periorbital cellulitis, CT scan, labs are not indicated. Counseling: I had a detailed discussion with the patient and/or guardian regarding the historical points, exam findings, and any diagnostic results supporting the discharge/admit diagnosis, the need for outpatient follow up. 04:49 Data reviewed: vital signs, nurses notes. rt Administered Medications: 00:35 Drug: diphenhydrAMINE PO 25 mg PO once Route: PO; bl1 00:38 Follow up: Response: No adverse reaction bl1 00:35 Drug: predniSONE PO 40 mg PO once Route: PO; bl1 00:38 Follow up: Response: No adverse reaction bl1 Disposition Summary: 12/05/24 00:25 Discharge Ordered Notes: Location: Home rt Problem: new rt Symptoms: are unchanged rt Condition: Stable rt Diagnosis - Allergic conjunctivitis rt Followup: rt - With: Private Physician - When: 2 - 3 days - Reason: Discharge Instructions: - Discharge Summary Sheet rt - Allergic Conjunctivitis, Adult rt Forms: - Medication Reconciliation Form rt - Antibiotic Education rt - Prescription Opioid Use rt - Patient Portal Instructions rt - Leadership Thank You Letter rt Prescriptions: - Prednisone 20 mg Oral Tablet - take 2 tablets ORAL route once daily for 5 days; 10 tablet; Refills: 0, Product rt Selection Permitted Signatures: Abelino Mcfadden RN RN jb4 Jose A Jones MD MD rt Hailey Davies RN RN bl1
--- NOTE | 2024-12-05 00:26 | ER ---
Nurse's Notes [facility] Name: Leonard Rea Age: 39 yrs Sex: Male : 1985 Arrival Date: 12/04/2024 Time: 22:56 Bed 5 Private MD: Diagnosis: Allergic conjunctivitis Presentation: 12/04 23:37 Chief complaint: Patient states: Last week I started having swelling to my left and It jb4 started getting worse, I wiped it a few times and it turned into the swelling I have today. A couple times and noticed white discharge. Coronavirus screen: At this time, the client does not indicate any symptoms associated with coronavirus-19. Ebola Screen: No symptoms or risks identified at this time. Onset: The symptoms/episode began/occurred gradually, 1 week(s) ago. Anaphylaxis evaluation, no signs or symptoms of anaphylaxis were noted. Initial Sepsis Screen: Does the patient meet any 2 criteria? No. Patient's initial sepsis screen is negative. Does the patient have a suspected source of infection? No. Patient's initial sepsis screen is negative. Risk Assessment: Do you want to hurt yourself or someone else? Patient reports no desire to harm self or others. Onset of symptoms was November 23, 2024. Transition of care: patient was not received from another setting of care. 23:37 Method Of Arrival: Ambulatory jb4 23:37 Acuity: CHATA 4 jb4 Triage Assessment: 23:40 General: Appears in no apparent distress. comfortable, Behavior is calm, cooperative. jb4 Pain: Complains of pain in left eye Pain does not radiate. Pain currently is 2 out of 10 on a pain scale. EENT: Sclera/Cornea are reddened in outer aspect of conjuctiva of left eye, iris of left eye and inner aspect of conjunctiva of left eye. Neuro: Level of Consciousness is awake, alert, obeys commands, Oriented to person, place, time, situation. Cardiovascular: Patient's skin is warm and dry. Respiratory: Airway is patent Respiratory effort is even, unlabored, Respiratory pattern is regular, symmetrical. Derm: Skin is intact, Skin is pink, warm \T\ dry. Historical: - Allergies: 23:40 No Known Allergies; jb4 - PMHx: 23:40 Anxiety; Depression; Bipolar disorder; Asthma; Diverticulitis; jb4 - PSHx: 23:40 None; jb4 - Immunization history:: Adult Immunizations up to date. - Infectious Disease History:: Denies. - Social history:: Smoking status: Patient denies any tobacco usage or history of. Patient uses street drugs, marijuana. - Family history:: not pertinent. Screenin/23 00:27 [facility] ED Fall Risk Assessment (Adult) Score/Fall Risk Level 0 - 2 = Low Risk bl1 Oriented to surroundings, Maintained a safe environment, Hourly rounding (assess needs \T\ fall precautionary measures) done. Abuse screen: Denies threats or abuse. Denies injuries from another. Nutritional screening: No deficits noted. Tuberculosis screening: No symptoms or risk factors identified. 00:28 [facility] ED Fall Risk Assessment (Adult) Score/Fall Risk Level 0 - 2 = Low Risk. bl1 00:29 [facility] ED Fall Risk Assessment (Adult) History of falling in the last 3 months, bl1 including since admission No falls in past 3 months (0 pts) Confusion or Disorientation No (0 pts) Intoxicated or Sedated No (0 pts) Impaired Gait No (0 pts) Mobility Assist Device Used No (0 pt) Altered Elimination No (0 pt) Score/Fall Risk Level 0 - 2 = Low Risk Oriented to surroundings, Maintained a safe environment, Hourly rounding (assess needs \T\ fall precautionary measures) done. Assessment: 00:29 Respiratory: Airway is patent. bl1 00:35 Reassessment: No changes from previously documented assessment. General: Appears in no bl1 apparent distress. Pain: Denies pain. Neuro: No deficits noted. Respiratory:. Respiratory: No deficits noted. Respiratory: Airway is patent Breath sounds are clear. EENT: Eyes are tearing on outer aspect of conjuctiva of left eye, iris of left eye and inner aspect of conjunctiva of left eye. Derm: No deficits noted. Vital Signs: 12/04 23:37 BP 145 / 92; Pulse 89; Resp 16; Temp 97.6(TE); Pulse Ox 99% on R/A; Weight 102.06 kg; jb4 Height 6 ft. 3 in. ; 23:37 Body Mass Index 28.12 (102.06 kg, 190.5 cm) jb4 ED Course: 23:00 Patient arrived in ED. jj6 23:17 Jose A Jones MD is Attending Physician. rt 23:40 Triage completed. jb4 23:40 Arm band placed on right wrist. jb4 12/05 00:09 Iveth Parrish, RN is Primary Nurse. al5 00:27 Patient has correct armband on for positive identification. Bed in low position. Call bl1 light in reach. Side rails up X 1. Provided Education on: plan of care . 00:27 No provider procedures requiring assistance completed. bl1 00:37 Patient did not have IV access during this emergency room visit. bl1 Administered Medications: 00:35 Drug: diphenhydrAMINE PO 25 mg PO once Route: PO; bl1 00:38 Follow up: Response: No adverse reaction bl1 00:35 Drug: predniSONE PO 40 mg PO once Route: PO; bl1 00:38 Follow up: Response: No adverse reaction bl1 Medication: 00:30 VIS not applicable for this client. bl1 Outcome: 00:25 Discharge ordered by MD. rt 00:36 Discharged to home ambulatory, bl1 00:36 Condition: stable 00:36 Discharge instructions given to patient, Instructed on discharge instructions, follow up and referral plans. medication usage, Demonstrated understanding of instructions, follow-up care, medications, Prescriptions given X 1, 00:38 Patient left the ED. bl1 Signatures: Abelino Mcfadden, RN RN jb4 Bailey Garciaj6 Jose A Jones MD MD rt Iveth Parrish, YFN RN al5 Hailey Davies, RN RN bl1
[2024-12-05] MEDS ORDERED: predniSONE 20 MG TAB ONE (00:31)
[2024-12-05] MEDS ORDERED: DIPHENHYDRAMINE 25 MG TAB/CAP ONE (00:32)
[2024-12-05 01:01] VITALS: BP 145/92; TEMP 97.6; O2SAT 99
== END 2024-12-05 00:38 | disposition home or self-care (01) ==
LOC: ER 22:56
DX: H10.12 Acute atopic conjunctivitis, left eye (principal)
CPT/HCPCS: 99283; J7512